=== PATIENT | male | born 1965 | race Caucasian/White ===

== ENCOUNTER 2017-07-08 14:36 | Observation (INO) | payer MEDICAID ==
[2017-07-08 15:32] LABS: BASO # 0.1 K/uL (0.0-0.2); BASO % 0.9 % (0.0-2.0); EOS # 0.5 K/uL (0.0-0.7); EOS % 4.4 % (0.0-4.0); LYMPH # 3.5 K/uL (1.0-4.3); LYMPH % 31.5 % (20.0-40.0); MEAN CELL VOLUME 88.3 fL (80.0-94.0); MEAN CORPUSCULAR HEMOGLOBIN 29.5 pg (27.0-31.0); MEAN CORPUSCULAR HGB CONC 33.4 g/dL (33.0-37.0); MEAN PLATELET VOLUME 6.8 fL (7.2-11.7); MONO # 0.7 K/uL (0.0-0.8); MONO % 6.2 % (0.0-10.0); NRBC % 0.1 % (0.0-2.0); RED CELL DISTRIBUTION WIDTH 13.3 % (11.5-14.5); WHITE BLOOD COUNT 11.2 K/uL (4.8-10.8)
[2017-07-08 15:41] LABS: INR 1.1
[2017-07-08 15:52] LABS: CHLORIDE 102 mmol/L (98-107); POTASSIUM 4.7 mmol/L (3.6-5.2); SODIUM 138 mmol/L (132-148)
[2017-07-08 15:54] LABS: GFR AFRICAN-AMERICAN > 60
[2017-07-08 15:55] LABS: ALB/GLOB RATIO 1.3 (1.0-2.1); ALKALINE PHOSPHATASE 88 U/L (38-126); ALT/SGPT 83 U/L (21-72); AST/SGOT 35 U/L (17-59); BILIRUBIN,TOTAL 0.2 mg/dL (0.2-1.3); BLOOD UREA NITROGEN 14 mg/dL (9-20); CARBON DIOXIDE 24 mmol/L (22-30); GLUCOSE,RANDOM 253 mg/dL (75-110); TOTAL PROTEIN 6.5 g/dL (6.3-8.3)
[2017-07-08 15:56] LABS: CALCIUM 8.8 mg/dl (8.6-10.4)
--- NOTE | 2017-07-08 15:56 | C.PDOC ---
History Of Present Illness 52 y/o male presents to emergency department with complaint of left sided chest pain since last night. Patient reports that chest pain radiates down his left arm, and is associated with dyspnea on exertion. Patient reports he was seen at PMD's office today, however, PMD sent to the ER for further evaluation. Denies nausea, vomiting, fever, trauma, numbness, or weakness. Time Seen by Provider: 07/08/17 15:03 Chief Complaint (Nursing): Chest Pain History Per: Patient History/Exam Limitations: no limitations Onset/Duration Of Symptoms: Days Current Symptoms Are (Timing): Still Present Quality: "Pain" Exacerbating Factors: Exertion Recent travel outside of the [place]: No Past Medical History Reviewed: Historical Data, Nursing Documentation, Vital Signs Vital Signs: Last Vital Signs Temp 98.2 F 07/08/17 18:32 Pulse 70 07/08/17 18:32 Resp 16 07/08/17 18:32 BP 132/71 07/08/17 18:32 Pulse Ox 96 07/08/17 19:31 - Medical History PMH: HTN, Hypercholesterolemia Family History: States: Unknown Family Hx - Social History Hx Alcohol Use: No Hx Substance Use: No - Immunization History Hx Tetanus Toxoid Vaccination: Yes Hx Influenza Vaccination: Yes Hx Pneumococcal Vaccination: No Review Of Systems Except As Marked, All Systems Reviewed And Found Negative. Constitutional: Negative for: Fever, Chills Cardiovascular: Positive for: Chest Pain. Negative for: Palpitations Respiratory: Positive for: SOB with Excertion. Negative for: Cough, Sputum, Wheezing Gastrointestinal: Negative for: Nausea, Vomiting, Abdominal Pain Musculoskeletal: Positive for: Arm Pain (L) Skin: Negative for: Rash Neurological: Negative for: Headache, Dizziness Physical Exam - Physical Exam Appears: Non-toxic, No Acute Distress Skin: Normal Color, Warm, Dry Head: Atraumatic, Normacephalic Eye(s): bilateral: Normal Inspection, PERRL, EOMI Ear(s): Bilateral: Normal Nose: Normal Oral Mucosa: Moist Neck: Normal ROM, Supple Chest: Symmetrical Cardiovascular: Rhythm Regular Respiratory: Normal Breath Sounds, No Rales, No Rhonchi, No Wheezing Gastrointestinal/Abdominal: Soft, No Tenderness, No Guarding, No Rebound Back: Normal Inspection Extremity: Normal ROM, No Pedal Edema, Capillary Refill (< 2 sec.), No Swelling Neurological/Psych: Oriented x3, Normal Speech, Normal Cognition ED Course And Treatment - Laboratory Results Result Diagrams: 07/08/17 15:29 07/08/17 15:29 ECG: Interpreted By Me ECG Rhythm: Sinus Rhythm ECG Interpretation: Normal Rate From EC (bpm) O2 Sat by Pulse Oximetry: 96 (RA) Pulse Ox Interpretation: Normal - Radiology CXR: Viewed By Me, Read By Radiologist CXR Interpretation: Yes: No Acute Disease. No: Infiltrates Progress Note: EKG, CxR, and bloodwork ordered/reviewed. Treated with nitro SL and aspirin 324mg. Medical Decision Making Medical Decision Making: Case discussed with Dr. Domínguez, agrees to admit for chest pain. Disposition - Disposition Disposition: HOSPITALIZED Disposition Time: 17:00 Condition: FAIR - Clinical Impression Clinical Impression: Chest pain - PA / MATTRESS FILLER / Resident Statement MD/DO has reviewed & agrees with the documentation as recorded. - Scribe Statement The provider has reviewed the documentation as recorded by the Scribe Gómez Neal All medical record entries made by the Miibe were at my direction and personally dictated by me. I have reviewed the chart and agree that the record accurately reflects my personal performance of the history, physical exam, medical decision making, and the department course for this patient. I have also personally directed, reviewed, and agree with the discharge instructions and disposition.
--- NOTE | 2017-07-08 15:57 | RAD ---
PROCEDURE: CHEST RADIOGRAPH, 1 VIEW HISTORY: chest pain COMPARISON: None available. FINDINGS: LUNGS: Clear. PLEURA: No pneumothorax or pleural fluid seen. CARDIOVASCULAR: Normal. OSSEOUS STRUCTURES: No significant abnormalities. VISUALIZED UPPER ABDOMEN: Normal. OTHER FINDINGS: None. IMPRESSION: No active disease.
[2017-07-08] MEDS ORDERED: Sodium Chloride 0.9% 1,000 ML IV ONE (16:39)
[2017-07-08] MEDS ORDERED: (Lantus) Insulin Glargine, Recombinant SC SCH (22:00)
[2017-07-08] MEDS: Enoxaparin 40 mg Syringe SC SCH (22:31)
[2017-07-08] MEDS: (Novolog) Insulin Aspart, Recombinant 100 u/ml 10 ml vial SC SCH (22:32)
--- NOTE | 2017-07-09 09:10 | CP.PCM.PN ---
Subjective - Date & Time of Evaluation Date of Evaluation: 07/09/17 Time of Evaluation: 09:45 - Subjective Subjective: Dr. Domínguez note: Patient seen and examined in room. He is a 52 year old male with a history of IDDM and smoking is here with 2 days of right sided chest pain that radiates to his right arm. He says the pain was constant for two days whether he was active or not. He says the pain has diminished since admission but he says the he has an unusual feeling in his arm. Objective - Vital Signs/Intake and Output Vital Signs (last 24 hours): Temp Pulse Resp BP Pulse Ox 97.7 F 69 97 H 147/81 98 07/09/17 08:48 07/09/17 08:48 07/09/17 08:48 07/09/17 08:48 07/09/17 04:15 Intake and Output: 07/09/17 07/09/17 06:59 18:59 Intake Total 120 Balance 120 - Medications Medications: Current Medications Aspirin (Ecotrin) 81 mg PO DAILY [facility] Carvedilol (Coreg) 12.5 mg PO BID [facility] Clopidogrel Bisulfate (Plavix) 75 mg PO DAILY [facility] Last Admin: 07/08/17 22:31 Dose: 75 mg Enalapril Maleate (Vasotec) 40 mg PO DAILY [facility] Enoxaparin Sodium (Lovenox) 40 mg SC DAILY [facility] Last Admin: 07/08/17 22:31 Dose: 40 mg Insulin Aspart (Novolog) 0 unit SC ACHS [facility] PRN Reason: Protocol Last Admin: 07/08/17 22:32 Dose: Not Given Insulin Aspart (Novolog) 20 unit SC TIDPC [facility] Insulin Glargine (Lantus) 70 unit SC [facility] Last Admin: 07/08/17 22:30 Dose: 70 u Metformin HCl (Glucophage) 1,000 mg PO BID [facility] Rosuvastatin Calcium (Crestor) 5 mg PO HS [facility] Last Admin: 07/08/17 22:27 Dose: 5 mg - Labs Labs: 07/08/17 15:29 07/08/17 15:29 PT 12.3 SECONDS (9.7-12.2) H 07/08/17 15:29 INR 1.1 07/08/17 15:29 APTT 30 SECONDS (21-34) 10/02/17 15:29 - Constitutional Appears: Non-toxic, No Acute Distress - Eye Exam Eye Exam: Normal appearance - Respiratory Exam Respiratory Exam: Clear to Ausculation Bilateral. absent: Rales, Rhonchi, Wheezes - Cardiovascular Exam Cardiovascular Exam: REGULAR RHYTHM, RRR, +S1, +S2. absent: Gallop, Rubs - GI/Abdominal Exam GI & Abdominal Exam: Soft, Normal Bowel Sounds. absent: Tenderness - Extremities Exam Extremities Exam: Normal Inspection. absent: Pedal Edema - Psychiatric Exam Psychiatric exam: Normal Affect, Normal Mood - Skin Skin Exam: Normal Color Assessment and Plan (1) Chest pain Assessment & Plan: Patient seen by technology administrator, Dr. Young who suggested outpatient stress test. Have discharged patient home to continue all his home medications. Status: Acute (2) HTN (hypertension) Assessment & Plan: continue his home medication on discharge. Status: Acute (3) Diabetes mellitus Assessment & Plan: continue with home insulin and continue to check his blood sugar at home. Status: Acute (4) Prophylactic measure Assessment & Plan: Patient discharged home today, he will follow up with PMD and Dr. Young. Status: Acute
[2017-07-09 09:18] VITALS: RESP 20
[2017-07-09] MEDS: (Novolog) Insulin Aspart, Recombinant 100 u/ml 10 ml vial SC SCH ×4 (09:19→13:26)
[2017-07-09] MEDS: Enoxaparin 40 mg Syringe SC SCH (09:21)
--- NOTE | 2017-07-09 15:38 | CP.PCM.CON ---
History of Present Illness - History of Present Illness History of Present Illness: I was asked to see patient by Dr. Domínguez. Patient is a 52 year old male with PMH HTN, DM, hypercholesterolemia, who presents with chest pain. The patient describes intermitten chest pain which is left sided and occurs at rest. He states symptoms were progressive. He had associated dyspnea. His primary docotr encouraged him to go to the ER. The patient feels better today. He is s /p echocardiogram Review of Systems - Constitutional Constitutional: absent: As Per HPI, Anorexia, Chills, Daytime Sleepiness, Excessive Sweating, Fatigue, Fever, Frequent Falls, Headache, Increased Appetite , Lethargy, Malaise, Night Sweats, Snoring, Sleep Apnea, Weight Gain, Weight Loss, Weakness, Other - EENT Eyes: absent: As Per HPI, Blind Spots, Blurred Vision, Change in Vision, Decreased Night Vision, Diplopia, Discharge, Dry Eye, Exophthalmos, Floaters, Irritation, Itchy Eyes, Loss of Peripheral Vision, Pain, Photophobia, Requires Corrective Lenses, Sees Flashes, Spots in Vision, Tunnel Vision, Other Visual Disturbances, Loss of Vision, Other Ears: absent: As Per HPI, Decreased Hearing, Ear Discharge, Ear Pain, Tinnitus, Abnormal Hearing, Disequilibrium, Dizziness, Other Nose/Mouth/Throat: absent: As Per HPI, Epistaxis, Nasal Congestion, Nasal Discharge, Nasal Obstruction, Nasal Trauma, Nose Pain, Post Nasal Drip, Sinus Pain, Sinus Pressure, Bleeding Gums, Change in Voice, Dental Pain, Dry Mouth, Dysphagia, Halitosis, Hoarsness, Lip Swelling, Mouth Lesions, Mouth Pain, Odynophagia, Sore Throat, Throat Swelling, Tongue Swelling, Facial Pain, Neck Pain, Neck Mass, Other - Cardiovascular Cardiovascular: Chest Pain at Rest - Respiratory Respiratory: absent: As Per HPI, Cough, Dyspnea, Hemoptysis, Dyspnea on Exertion , Wheezing, Snoring, Stridor, Pain on Inspiration, Chest Congestion, Excessive Mucous Production, Change in Mucous Color, Pain with Coughing, Other - Gastrointestinal Gastrointestinal: absent: As Per HPI, Abdominal Pain, Belching, Bloating, Change in Bowel Habits, Change in Stool Character, Coffee Ground Emesis, Constipation, Cramping, Diarrhea, Dyspepsia, Dysphagia, Early Satiety, Excessive Flatus, Fecal Incontinence, Heartburn, Hematemesis, Hematochezia, Loose Stools, Melena, Nausea, Odynophagia, Temesmus, Vomiting, Other - Genitourinary Genitourinary: absent: As Per HPI, Change in Urinary Stream, Difficulty Urinating, Dysuria, Flank Pain, Hematuria, Pyuria, Nocturia, Urinary Incontinence, Urinary Frequency, Urinary Hesitance, Urinary Urgency, Voiding Freq/Small Amts, Freq UTI, Hx Renal/Bladder Calculi, Hx /Renal Surgery, Bladder Distension, Other - Musculoskeletal Musculoskeletal: absent: As Per HPI, Abnormal Gait, Arthralgias, Atrophy, Back Pain, Deformity, Joint Swelling, Limited Range of Motion, Loss of Height, Muscle Cramps, Muscle Weakness, Myalgias, Neck Pain, Numbness, Radiating Pain into Limb, Stiffness, Tingling, Other - Integumentary Integumentary: absent: As Per HPI, Acne, Alopecia, Bleeding Lesions, Change in Hair, Change in Nails, Change in Pigmentation, Changing Lesions, Dry Skin, Erythema, Furuncle, Hirsutism, Lesions, New Lesions, Non-Healing Lesions, Photosensitivity, Pruritus, Rash, Skin Pain, Skin Ulcer, Sores, Striae, Swelling , Unusual Bruising, Wounds, Jaundice, Other - Neurological Neurological: absent: As Per HPI, Abnormal Gait, Abnormal Hearing, Abnormal Movements, Abnormal Speech, Behavioral Changes, Burning Sensations, Confusion, Convulsions, Disequilibrium, Dizziness, Numbness, Focal Weakness, Frequent Falls , Headaches, Lack of Coordination, Loss of Vision, Memory Loss, Paresthesias, Radicular Pain, Restless Legs, Sensory Deficit, Syncope, Tingling, Tremor, Vertigo, Weakness, Other Visual Disturbances, Other - Psychiatric Psychiatric: absent: As Per HPI, Abnormal Sleep Pattern, Anhedonia, Anxiety, Auditory Hallucinations, Behavioral Changes, Change in Appetite, Change in Libido, Confusion, Depression, Difficulty Concentrating, Hallucinations, Homicidal Ideation, Hopelessness, Irritability, Memory Loss, Mood Swings, Panic Attacks, Paranoia, Suicidal Ideation, Visual Hallucinations, Tactile Hallucinations, Other - Endocrine Endocrine: absent: As Per HPI, Change in Body Appearance, Change in Libido, Cold Intolorance, Deepening of Voice, Excessive Sweating, Fatigue, Flushing, Heat Intolorance, Increase in Ring/Shoe/Hat Size, Palpitations, Polydipsia, Polyphagia, Polyuria, Other - Hematologic/Lymphatic Hematologic: absent: As Per HPI, Easy Bleeding, Easy Bruising, Lymphadenopathy, Other Past Patient History - Past Medical History & Family History Past Medical History?: Yes - Past Social History Smoking Status: Light Smoker < 10 Cigarettes Daily - CARDIAC Hx Hypercholesterolemia: Yes Hx Hypertension: Yes - PULMONARY Hx Respiratory Disorders: No - NEUROLOGICAL Hx Neurological Disorder: No - HEENT Hx Cataracts: Yes (Right eye) - RENAL Hx Chronic Kidney Disease: No - ENDOCRINE/METABOLIC Hx Diabetes Mellitus Type 2: Yes - HEMATOLOGICAL/ONCOLOGICAL Hx Blood Disorders: No - INTEGUMENTARY Hx Dermatological Problems: No - MUSCULOSKELETAL/RHEUMATOLOGICAL Hx Musculoskeletal Disorders: No Hx Falls: No - GASTROINTESTINAL Hx Pancreatitis: Yes - GENITOURINARY/GYNECOLOGICAL Hx Genitourinary Disorders: No - PSYCHIATRIC Hx Psychophysiologic Disorder: No Hx Substance Use: No - SURGICAL HISTORY Hx Surgeries: Yes Other/Comment: B/L FOOT SX - ANESTHESIA Hx Anesthesia: Yes Hx Anesthesia Reactions: No Meds Allergies/Adverse Reactions: Allergies Allergy/AdvReac Type Severity Reaction Status Date / Time No Known Allergies Allergy Verified 07/08/17 14:49 - Medications Medications: Current Medications Aspirin (Ecotrin) 81 mg PO DAILY [facility] Last Admin: 07/09/17 09:22 Dose: 81 mg Carvedilol (Coreg) 12.5 mg PO BID [facility] Last Admin: 07/09/17 09:23 Dose: 12.5 mg Clopidogrel Bisulfate (Plavix) 75 mg PO DAILY [facility] Last Admin: 07/09/17 09:23 Dose: 75 mg Enalapril Maleate (Vasotec) 40 mg PO DAILY [facility] Last Admin: 07/09/17 09:23 Dose: 40 mg Enoxaparin Sodium (Lovenox) 40 mg SC DAILY [facility] Last Admin: 07/09/17 09:21 Dose: 40 mg Insulin Aspart (Novolog) 0 unit SC ACHS [facility] PRN Reason: Protocol Last Admin: 07/09/17 12:30 Dose: Not Given Insulin Aspart (Novolog) 20 unit SC TIDPC [facility] Last Admin: 07/09/17 13:26 Dose: 20 unit Insulin Glargine (Lantus) 70 unit SC HS [facility] Last Admin: 07/08/17 22:30 Dose: 70 u Metformin HCl (Glucophage) 1,000 mg PO BID [facility] Last Admin: 07/09/17 09:23 Dose: 1,000 mg Rosuvastatin Calcium (Crestor) 5 mg PO HS [facility] Last Admin: 07/08/17 22:27 Dose: 5 mg Physical Exam - Constitutional Appears: Non-toxic - Head Exam Head Exam: NORMAL INSPECTION - Eye Exam Eye Exam: Normal appearance - ENT Exam ENT Exam: Mucous Membranes Moist - Neck Exam Neck exam: Positive for: Full Rom - Respiratory Exam Respiratory Exam: NORMAL BREATHING PATTERN - Cardiovascular Exam Cardiovascular Exam: REGULAR RHYTHM - GI/Abdominal Exam GI & Abdominal Exam: Normal Bowel Sounds - Rectal Exam Rectal Exam: Deferred - Extremities Exam Extremities exam: Positive for: pedal pulses present. Negative for: pedal edema - Back Exam Back exam: NORMAL INSPECTION - Neurological Exam Neurological exam: Alert - Psychiatric Exam Psychiatric exam: Normal Mood - Skin Skin Exam: Dry Results - Vital Signs Recent Vital Signs: Last Vital Signs Temp 97.7 F 07/09/17 08:48 Pulse 71 07/09/17 09:17 Resp 20 07/09/17 09:17 BP 147/93 H 07/09/17 09:23 Pulse Ox 97 07/09/17 09:17 - Labs Result Diagrams: 07/08/17 15:29 07/08/17 15:29 Labs: Laboratory Results - last 24 hr 07/08/17 07/08/17 07/08/17 15:29 15:29 15:29 WBC 11.2 H RBC 4.42 Hgb 13.0 Hct 39.0 MCV 88.3 MCH 29.5 MCHC 33.4 RDW 13.3 Plt Count 387 MPV 6.8 L Neut % (Auto) 57.0 Lymph % (Auto) 31.5 [place] % (Auto) 6.2 Eos % (Auto) 4.4 H Baso % (Auto) 0.9 Neut # 6.4 Lymph # 3.5 [place] # 0.7 Eos # 0.5 Baso # 0.1 PT 12.3 H INR 1.1 APTT 30 Sodium 138 Potassium 4.7 Chloride 102 Carbon Dioxide 24 Anion Gap 17 BUN 14 Creatinine 0.7 L Est GFR ( Amer) > 60 Est GFR (Non-Af Amer) > 60 POC Glucose (mg/dL) Random Glucose 253 H Calcium 8.8 Total Bilirubin 0.2 AST 35 ALT 83 H Alkaline Phosphatase 88 Total Creatine Kinase CK-MB (Mass) Troponin I < 0.0120 Troponin I, Quant NT-Pro-B Natriuret Pep 14.0 Total Protein 6.5 Albumin 3.7 Globulin 2.9 Albumin/Globulin Ratio 1.3 07/08/17 07/09/17 07/09/17 21:59 00:59 07:01 WBC RBC Hgb Hct MCV MCH MCHC RDW Plt Count MPV Neut % (Auto) Lymph % (Auto) [place] % (Auto) Eos % (Auto) Baso % (Auto) Neut # Lymph # [place] # Eos # Baso # PT INR APTT Sodium Potassium Chloride Carbon Dioxide Anion Gap BUN Creatinine Est GFR ( Amer) Est GFR (Non-Af Amer) POC Glucose (mg/dL) 250 H 220 H Random Glucose Calcium Total Bilirubin AST ALT Alkaline Phosphatase Total Creatine Kinase 178 H CK-MB (Mass) 1.16 Troponin I Troponin I, Quant < 0.0120 NT-Pro-B Natriuret Pep Total Protein Albumin Globulin Albumin/Globulin Ratio 07/09/17 07/09/17 08:51 12:13 WBC RBC Hgb Hct MCV MCH MCHC RDW Plt Count MPV Neut % (Auto) Lymph % (Auto) [place] % (Auto) Eos % (Auto) Baso % (Auto) Neut # Lymph # [place] # Eos # Baso # PT INR APTT Sodium Potassium Chloride Carbon Dioxide Anion Gap BUN Creatinine Est GFR ( Amer) Est GFR (Non-Af Amer) POC Glucose (mg/dL) 135 H Random Glucose Calcium Total Bilirubin AST ALT Alkaline Phosphatase Total Creatine Kinase 167 CK-MB (Mass) 1.09 Troponin I Troponin I, Quant < 0.0120 NT-Pro-B Natriuret Pep Total Protein Albumin Globulin Albumin/Globulin Ratio - EKG Data EKG Interpreted by: Myself EKG shows normal: Sinus rhythm Assessment & Plan - Assessment and Plan (Free Text) Assessment: chest pain. Patient ruled out for myocardial infarction. The echocardiogram reveals normal left ventricular function and no wall motion abnormalities. The patient is stable for discharge. I will schedule outpatient stress test. Diabetes mellitus. Risk factor for CAD. will schedule outpatient stress test.
--- NOTE | 2017-07-09 16:53 | CP.PCM.DIS ---
Provider - Provider Date of Admission: 07/08/17 17:32 Attending physician: Minh Domínguez MD Diagnosis - Discharge Diagnosis (1) Chest pain Status: Acute (2) HTN (hypertension) Status: Acute (3) Diabetes mellitus Status: Acute (4) Prophylactic measure Status: Acute Hospital Course - Lab Results Lab Results: Most Recent Lab Values WBC 11.2 K/uL (4.8-10.8) H 07/08/17: RBC 4.42 Mil/uL (4.40-5.90) 07/08/17 15: Hgb 13.0 g/dL (12.0-18.0) 07/08/17: Hct 39.0 % (35.0-51.0) 07/08/17: MCV 88.3 fL (80.0-94.0) 07/08/17: MCH 29.5 pg (27.0-31.0) 07/08/17: MCHC 33.4 g/dL (33.0-37.0) 07/08/17: RDW 13.3 % (11.5-14.5) 07/08/17: Plt Count 387 K/uL (130-400) 07/08/17: MPV 6.8 fL (7.2-11.7) L 07/08/17: Neut % (Auto) 57.0 % (50.0-75.0) 07/08/17: Lymph % (Auto) 31.5 % (20.0-40.0) 07/08/17: [place] % (Auto) 6.2 % (0.0-10.0) 07/08/17: Eos % (Auto) 4.4 % (0.0-4.0) H 07/08/17: Baso % (Auto) 0.9 % (0.0-2.0) 07/08/17: Neut # 6.4 K/uL (1.8-7.0) 07/08/17: Lymph # 3.5 K/uL (1.0-4.3) 07/08/17: [place] # 0.7 K/uL (0.0-0.8) 07/08/17 15: Eos # 0.5 K/uL (0.0-0.7) 07/08/17 15:29 Baso # 0.1 K/uL (0.0-0.2) 07/08/17 15:29 PT 12.3 SECONDS (9.7-12.2) H 07/08/17 15: INR 1.1 07/08/17 15: APTT 30 SECONDS (21-34) 07/08/17 15:29 Sodium 138 mmol/L (132-148) 07/08/17 15:29 Potassium 4.7 mmol/L (3.6-5.2) 07/08/17 15: Chloride 102 mmol/L (98-107) 07/08/17 15: Carbon Dioxide 24 mmol/L (22-30) 07/08/17 15: Anion Gap 17 (10-20) 07/08/17 15: BUN 14 mg/dL (9-20) 07/08/17 15: Creatinine 0.7 MG/DL (0.8-1.5) L 07/08/17 15:29 Est GFR ( Amer) > 60 07/08/17 15:29 Est GFR (Non-Af Amer) > 60 07/08/17 15:29 POC Glucose (mg/dL) 135 mg/dL (65-110) H 07/09/17 12:13 Random Glucose 253 mg/dL (75-110) H 07/08/17 15: Calcium 8.8 mg/dl (8.6-10.4) 07/08/17 15:29 Total Bilirubin 0.2 mg/dL (0.2-1.3) 07/08/17 15:29 AST 35 U/L (17-59) 07/08/17 15:29 ALT 83 U/L (21-72) H 07/08/17 15:29 Alkaline Phosphatase 88 U/L (38-126) 07/08/17 15:29 Total Creatine Kinase 167 U/L (55-170) 07/09/17 08:51 CK-MB (Mass) 1.09 ng/mL (0.0-3.38) 07/09/17 08:51 Troponin I < 0.0120 ng/mL (0.00-0.120) 07/08/17 15:29 Troponin I, Quant < 0.0120 ng/mL (0.00-0.120) 07/09/17 08:51 NT-Pro-B Natriuret Pep 14.0 pg/mL (0-900) 07/08/17 15:29 Total Protein 6.5 g/dL (6.3-8.3) 07/08/17 15: Albumin 3.7 g/dL (3.5-5.0) 07/08/17 15: Globulin 2.9 gm/dL (2.2-3.9) 07/08/17 15:29 Albumin/Globulin Ratio 1.3 (1.0-2.1) 07/08/17 15:29 Discharge Exam - Head Exam Head Exam: NORMAL INSPECTION Discharge Plan - Follow Up Plan Condition: FAIR Disposition: HOME/ ROUTINE Instructions: Chest Pain (DC), Heart Healthy Diet (DC), Diabetic Foot Care (DC) , Basic Carbohydrate Counting (DC), Meal Planning with the Plate Method (DC), Meal Planning with Diabetes Exchanges (DC) Additional Instructions: Patient to be discharged home per Dr. Young and Dr. Domínguez. Patient will continue all his home medications. Patient will need to follow up with Dr. Young for outpatient stress test. Patient will return to ED if symptoms return or worsen. Referrals: Minh Domínguez MD [Staff Provider] - Diaz Young MD [Staff Provider] -
[2017-07-09 18:04] VITALS: BP 130/77; PULSE 67; TEMP 98; O2SAT 98
--- NOTE | 2017-07-10 06:43 | HP ---
HISTORY OF PRESENT ILLNESS: The patient is a 52-year-old male admitted to the hospital with complaint weakness, chest pain, recurrent. Patient has diabetes. PHYSICAL EXAMINATION: GENERAL: The patient is awake, alert, oriented. VITAL SIGNS: Temperature 98, pulse 90. HEENT: Within normal limits. NECK: Supple. CHEST: Symmetrical. HEART: Regular. ABDOMEN: Soft. EXTREMITIES: No edema. IMPRESSION: Unstable angina. The patient bedrest, supportive care. Minh Domínguez MD
--- NOTE | 2017-07-10 12:01 | CARD ---
APPROVED REPORT EKG Measurement Heart [id number] <Conclusion> Sinus rhythm with occasional premature ventricular complexes Otherwise normal ECG
--- NOTE | 2017-07-10 12:25 | CARD ---
APPROVED REPORT EXAM: Two-dimensional and M-mode echocardiogram with Doppler and color Doppler. Other Information Quality : GoodRhythm : NSR INDICATION Dyspnea Chest Pain 2D DIMENSIONS IVSd1.4 (0.7-1.1cm)LVDd4.5 (3.9-5.9cm) PWd1.2 (0.7-1.1cm)LVDs3.1 (2.5-4.0cm) FS (%) 31.2 %LVEF (%)59.2 (>50%) M-Mode DIMENSIONS Left Atrium (MM)4.51 (2.5-4.0cm)Aortic Root3.66 (2.2-3.7cm) Aortic Cusp Exc.2.21 (1.5-2.0cm) Mitral Valve MV E Cwniodsa27.3cm/sMV A Wtfjiyri33.9cm/sE/A ratio0.8 TDI E/Lateral E'0.0E/Medial E'0.0 Tricuspid Valve TR Peak [id number]/sTR Peak [id number] <Conclusion> tds. poor window. la is moderately dilated. normal size lv,ra & rv. mild lvh with normal lv wall motion & systolic funciton with lvef of 60-65%. lv diastolic dysfunciton grade one. probably normal aortic,mitral,tv. trace mr,tr. no pericadial effusion. normal size aortic root.
== END 2017-07-09 17:25 | disposition home or self-care (01) ==
LOC: C.ER 14:36 → C.9E 17:32 → C.6T 18:28
PROVIDERS: ADMIT Internal Medicine Pulmonary Disease; ATTEND Internal Medicine Pulmonary Disease
DX: R07.89 Other chest pain (principal); I10 Essential (primary) hypertension; E78.00 Pure hypercholesterolemia, unspecified; E11.9 Type 2 diabetes mellitus without complications; Z79.4 Long term (current) use of insulin; Z87.891 Personal history of nicotine dependence
CPT/HCPCS: 36415; 71010; 80053; 82948; 83880; 84484; 85025; 85610; 85730; 93005; 93306; 96360; 99285; G0378; J1650; J7040

== ENCOUNTER 2017-10-28 19:04 | Inpatient (IN) | payer MEDICAID ==
[2017-10-28] MEDS ORDERED: Sodium Chloride 0.9% 1,000 ML IV ONE (22:23)
[2017-10-28] MEDS ORDERED: Piperacillin/Tazobact 3.375 gm 100 ML IV STA (22:24)
[2017-10-28] MEDS ORDERED: Vancomycin 1 GM 1 GM/250 ML BAG IV SCH (22:30)
--- NOTE | 2017-10-28 22:30 | C.PDOC ---
History Of Present Illness 52 year old male presents to ED with complaints of a lower extremity problem and has a past medical history of hyperchoelsterolemia, HTN, and diabetes mellitus. Notes foul smell and enlargement to third toe on right foot. PCP: Nicolette Roger [facility] Leonard [facility] great toenail often falls off and is monitored. Time Seen by Provider: 10/28/17 21:53 Chief Complaint (Nursing): Lower Extremity Problem/Injury History Per: Patient History/Exam Limitations: no limitations Onset/Duration Of Symptoms: Worse Since Past Medical History Reviewed: Historical Data, Nursing Documentation, Vital Signs Vital Signs: Last Vital Signs Temp 98.3 F 10/28/17 20:15 Pulse 86 10/28/17 20:15 Resp 20 10/28/17 20:15 BP 160/91 H 10/28/17 20:15 Pulse Ox 97 10/28/17 23:07 - Medical History PMH: HTN, Hypercholesterolemia, Pancreatitis Denies: Chronic Kidney Disease Family History: States: Unknown Family Hx - Social History Hx Alcohol Use: No Hx Substance Use: No - Immunization History Hx Tetanus Toxoid Vaccination: Yes Hx Influenza Vaccination: Yes Hx Pneumococcal Vaccination: No Review Of Systems Except As Marked, All Systems Reviewed And Found Negative. Musculoskeletal: Positive for: Foot Pain ((+) right third toe is enlarged and foul smelling. Notes ulcer) Physical Exam - Physical Exam Appears: No Acute Distress Skin: Normal Color, Warm, Dry Extremity: Normal ROM, No Swelling, Other (Ulcerated right third toe. No edema or cellulitis to the dorsum of the foot.) Neurological/Psych: Normal Motor, Normal Sensation ED Course And Treatment - Laboratory Results Result Diagrams: 10/28/17 22:38 10/28/17 22:38 Lab Interpretation: Abnormal ECG: Interpreted By Me ECG Rhythm: Sinus Tachycardia ECG Interpretation: Abnormal Rate From EC O2 Sat by Pulse Oximetry: 97 Pulse Ox Interpretation: Normal - Radiology CXR: Interpreted by Me CXR Interpretation: Yes: No Acute Disease - Other Rad R 3rd toe X-Ray: Interpreted by Me (normal R 3rd toe, no gas) Progress Note: vanco, zosyn, IVF. no pain meds as toe anasthetic. Reevaluation Time: 23:02 Reassessment Condition: Unchanged - Physician Consult Information Outcome Of Conversation: 2300: d/w Dr. Claudio- Medicine Chuck Tender- ok to Adm. 2209 : d/w Podiatry Bola under Dr. Silas Quinn, agree w treatment and will consult. 2304: d/w Medicine Bola, will eval. Medical Decision Making Medical Decision Making: diabetic R 3rd toe infection, prob polymicrobial, widely covered w Vanco/Zosyn, no s/s of necrotizing fasciitis. podiatry to eval. Disposition Doctor Will See Patient In The: Hospital Counseled Patient/Family Regarding: Studies Performed, Diagnosis - Disposition Disposition: HOSPITALIZED Disposition Time: 23:04 Condition: GOOD - Clinical Impression Clinical Impression: Diabetic toe ulcer
[2017-10-28] MEDS ORDERED: Piperacill/Tazo 3.375gm in Dex 3.375 GM/50 ML BAG IVPB STA (22:38)
[2017-10-28 22:43] LABS: BASO # 0.1 K/uL (0.0-0.2); BASO % 0.9 % (0.0-2.0); EOS # 0.4 K/uL (0.0-0.7); EOS % 3.5 % (0.0-4.0); HEMOGLOBIN 12.5 g/dL (12.0-18.0); LYMPH # 3.8 K/uL (1.0-4.3); LYMPH % 30.4 % (20.0-40.0); MEAN CELL VOLUME 89.1 fL (80.0-94.0); MEAN CORPUSCULAR HEMOGLOBIN 30.3 pg (27.0-31.0); MEAN CORPUSCULAR HGB CONC 34.1 g/dL (33.0-37.0); MONO # 1.2 K/uL (0.0-0.8); MONO % 9.9 % (0.0-10.0); NEUT # 6.9 K/uL (1.8-7.0); NEUT % 55.3 % (50.0-75.0); RBC 4.1 Mil/uL (4.40-5.90); RED CELL DISTRIBUTION WIDTH 13.6 % (11.5-14.5); WHITE BLOOD COUNT 12.5 K/uL (4.8-10.8)
[2017-10-28 22:55] LABS: ALB/GLOB RATIO 1.3 (1.0-2.1); ALBUMIN 4.2 g/dL (3.5-5.0); ALT/SGPT 71 U/L (21-72); AST/SGOT 50 U/L (17-59); BLOOD UREA NITROGEN 18 mg/dL (9-20); CALCIUM 9.3 mg/dl (8.6-10.4); GFR AFRICAN-AMERICAN > 60; GFR NON-AFRICAN AMERICAN > 60
--- NOTE | 2017-10-28 23:41 | CP.PCM.HP ---
History of Present Illness - History of Present Illness History of Present Illness: Medicine Note for Dr. Strange Service CC: right toe pain HPI: 52M with PMHx of COPD, HTN, Type 2 DM, HLD presents to the ED with right toe pain. Patient reports he noticed the 3rd toe of his right foot was black and oozing with drainage. 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 He follows up with podiatry every 3-4 months, and this was not seen on prior visit. Patient describes the pain as heavy and sharp and rates it 8/10 and reports radiation of the pain to the caudal surface of his right knee. He reports taking Motrin at home for the pain, with little relief. He is able to bear weight on the foot, but with some level of discomfort. Denied fever, chills, headache, chest pain, SOB, abdominal pain, n/v/d/c, or urinary symptoms. PMH: COPD, HTN, Type 2 DM, HLD PSHx: Right foot fracture (2012), Left Foot Fracture (2013), Tonsillectomy Meds: Metformin 1000 mg PO BID, Lantus 60-70 units QHS, Humalog 20 units TID, Simvastatin, Enalapril, Carvedilol 25 mg PO BID Allergies: NKDA Social Hx: Reports smoking 5 cigarettes a day for the past year, reports quitting smoking from 2004 to 2015. Denies alcohol and illegal drug use. Patient lives with is mother in [place] and works in construction. FMHx: Mother - Stroke, renal failure, heart failure, breast cancer, currently 80 and alive. Father - stroke, renal failure, heart failure, . PMD: Dr. Roger Endo: Dr Maurice Dictaphone Mechanic: Dr. Taylor - Patient reports regular follow up every 3 months. Cardio: Dr. Goldberg Present on Admission - Present on Admission Any Indicators Present on Admission: No Past Patient History - Past Medical History & Family History Past Medical History?: Yes - Past Social History Smoking Status: Light Smoker < 10 Cigarettes Daily - CARDIAC Hx Hypercholesterolemia: Yes Hx Hypertension: Yes - PULMONARY Hx Respiratory Disorders: No - NEUROLOGICAL Hx Neurological Disorder: No - HEENT Hx Cataracts: Yes (Right eye) - RENAL Hx Chronic Kidney Disease: No - ENDOCRINE/METABOLIC Hx Diabetes Mellitus Type 1: Yes - HEMATOLOGICAL/ONCOLOGICAL Hx Blood Disorders: No - INTEGUMENTARY Hx Dermatological Problems: No - MUSCULOSKELETAL/RHEUMATOLOGICAL Hx Musculoskeletal Disorders: No Hx Falls: No - GASTROINTESTINAL Hx Pancreatitis: Yes - GENITOURINARY/GYNECOLOGICAL Hx Genitourinary Disorders: No - PSYCHIATRIC Hx Substance Use: No - SURGICAL HISTORY Hx Surgeries: Yes Other/Comment: B/L FOOT SX - ANESTHESIA Hx Anesthesia: Yes Hx Anesthesia Reactions: No Meds Allergies/Adverse Reactions: Allergies Allergy/AdvReac Type Severity Reaction Status Date / Time No Known Allergies Allergy Verified 07/08/17 14:49 Physical Exam - Constitutional Appears: No Acute Distress - Head Exam Head Exam: NORMAL INSPECTION, NORMOCEPHALIC - Eye Exam Eye Exam: EOMI, Normal appearance, PERRL Pupil Exam: NORMAL ACCOMODATION - ENT Exam ENT Exam: Mucous Membranes Moist - Respiratory Exam Respiratory Exam: Clear to Auscultation Bilateral, NORMAL BREATHING PATTERN. absent: Decreased Breath Sounds - Cardiovascular Exam Cardiovascular Exam: REGULAR RHYTHM, RRR - GI/Abdominal Exam GI & Abdominal Exam: Normal Bowel Sounds, Soft. absent: Distended, Tenderness - Extremities Exam Extremities exam: Positive for: normal inspection, pedal pulses present. Negative for: pedal edema, tenderness - Expanded Lower Extremities Exam Right Hip exam: normal inspection Upper Leg exam: normal inspection Knee exam: normal inspection Lower Leg Exam: normal inspection Ankle exam: NORMAL INSPECTION Foot/Toe exam: erythema, swelling - Back Exam Back exam: NORMAL INSPECTION - Neurological Exam Neurological exam: Alert, CN II-XII Intact, Oriented x3 - Psychiatric Exam Psychiatric exam: Normal Affect, Normal Mood - Skin Skin Exam: Dry, Intact, Normal Color, Warm Results - Vital Signs Recent Vital Signs: Last Vital Signs Temp 98.3 F 10/28/17 20:15 Pulse 86 10/28/17 20:15 Resp 20 10/28/17 20:15 BP 160/91 H 10/28/17 20:15 Pulse Ox 97 10/28/17 23:07 - Labs Result Diagrams: 10/28/17 22:38 10/28/17 22:38 Labs: Laboratory Results - last 24 hr 10/28/17 10/28/17 10/28/17 22:38 22:38 22:38 WBC 12.5 H RBC 4.10 L Hgb 12.5 Hct 36.6 MCV 89.1 MCH 30.3 MCHC 34.1 RDW 13.6 Plt Count 357 MPV 7.0 L Neut % (Auto) 55.3 Lymph % (Auto) 30.4 [place] % (Auto) 9.9 Eos % (Auto) 3.5 Baso % (Auto) 0.9 Neut # 6.9 Lymph # 3.8 [place] # 1.2 H Eos # 0.4 Baso # 0.1 Sodium 134 Potassium 4.1 Chloride 99 Carbon Dioxide 27 Anion Gap 12 BUN 18 Creatinine 0.9 Est GFR ( Amer) > 60 Est GFR (Non-Af Amer) > 60 Random Glucose 157 H Hemoglobin A1c 10.1 H Calcium 9.3 Total Bilirubin 0.6 AST 50 ALT 71 Alkaline Phosphatase 84 Total Protein 7.5 Albumin 4.2 Globulin 3.3 Albumin/Globulin Ratio 1.3 Serum Ketones Negative Assessment & Plan - Assessment and Plan (Free Text) Assessment: 52M with PMHx of COPD, HTN, Type 2 DM, HLD presents to the ED with right toe pain found to have cellulitis. Plan: Right foot, 3rd toe cellulitis ? Osteomyelitis Podiatry consulted - Dr. Quinn - help appreciated Right Foot Xray: First metatarsal osseous productive change and 3 screws present consistent with prior osteotomy. The 3rd toe with cellulitis as no gross subcutaneous emphysema here, periosteal reaction or cortical destruction. No osteomyelitis. f/u wound cultures f/u MRI to r/o osteomyelitis Meds: Zosyn 2.25 gm Q8H, Vancomycin 1 gm IV daily, f/u vanco trough Hx HTN Home med Coreg 25 mg PO BID Home med Enalapril 40 mg PO daily Hx DM Accuchecks Diabetic Diet Regular ISS Hold home Metformin 1000 mg PO BID for now Home med Lantus 70 units HS Home med Humalog 20 units SC ACTID not on formulary. Switched to Insulin Aspart 20 units ACTID HgbA1c 10.1 Hx HLD Crestor 10mg PO QHS Hx COPD CXR: Mild venous congestion. Prophylactic Measures GI PPX: Protonix 40mg PO daily DVT PPX: SCDs, Heparin Q12 Florastor 250 mg PO BID DW Dr. Claudio, Cat Nobles DO, PGY-1
--- NOTE | 2017-10-29 00:26 | CP.PCM.CON ---
History of Present Illness - History of Present Illness History of Present Illness: Podiatry Consult- Dr. Quinn 52 y.o male with PMH of DM, HTN, High cholesterol consulted in the ED for right 3rd digit ulceration. Patient reports that he noticed the ulceration for the first time today. He reports he feels throbbing pain to his 3rd digit with palpation. He reports the pain 8/10 and reports being localized to the 3rd right digit. Patient reports feeling chills and fever. He reports that he may be coming up the flu. Patient sees a outside criminology teacher Dr. Quoc Valle. Patient denies n/sob/cp/v. PMH:DM, HTN. High cholesterol PSH: tonsiolectomy, right foot surgery MEDS: see meds list ALL: NKDA FH: mother- DM, stroke, kidney failure, breast cancer, HTN, high cholesterol father-DM, HTN, liver cancer SH: 22 year smoker, denies drinking or ilicited drug use Past Patient History - Past Medical History & Family History Past Medical History?: Yes - Past Social History Smoking Status: Light Smoker < 10 Cigarettes Daily - CARDIAC Hx Hypercholesterolemia: Yes Hx Hypertension: Yes - PULMONARY Hx Respiratory Disorders: No - NEUROLOGICAL Hx Neurological Disorder: No - HEENT Hx Cataracts: Yes (Right eye) - RENAL Hx Chronic Kidney Disease: No - ENDOCRINE/METABOLIC Hx Diabetes Mellitus Type 1: Yes - HEMATOLOGICAL/ONCOLOGICAL Hx Blood Disorders: No - INTEGUMENTARY Hx Dermatological Problems: No - MUSCULOSKELETAL/RHEUMATOLOGICAL Hx Musculoskeletal Disorders: No Hx Falls: No - GASTROINTESTINAL Hx Pancreatitis: Yes - GENITOURINARY/GYNECOLOGICAL Hx Genitourinary Disorders: No - PSYCHIATRIC Hx Substance Use: No - SURGICAL HISTORY Hx Surgeries: Yes Other/Comment: B/L FOOT SX - ANESTHESIA Hx Anesthesia: Yes Hx Anesthesia Reactions: No Meds Allergies/Adverse Reactions: Allergies Allergy/AdvReac Type Severity Reaction Status Date / Time No Known Allergies Allergy Verified 07/08/17 14:49 - Medications Medications: Current Medications Acetaminophen (Tylenol 325mg Tab) 650 mg PO Q6 PRN PRN Reason: Pain, Mild (1-3) Heparin Sodium (Porcine) (Heparin) 5,000 units SC Q12 [facility] Vancomycin HCl (Vancomycin 1gm In Normal Saline Addvantage) 1 gm in 250 mls @ 166.667 mls/hr IV STAT [facility] Piperacillin Sod/Tazobactam Sod (Zosyn 2.25 Gm Iv Premix) 2.25 gm in 50 mls @ 100 mls/hr IVPB Q8H [facility] Vancomycin HCl 1 gm/ Sodium (Chloride) 250 mls @ 166.7 mls/hr IVPB Q24H [facility] Insulin Human Regular (Novolin R) 0 unit SC ACHS [facility] PRN Reason: Protocol Ketorolac Tromethamine (Toradol) 10 mg IV Q6 PRN PRN Reason: Pain, moderate (4-7) Pantoprazole Sodium (Protonix Ec Tab) 40 mg PO DAILY [facility] Saccharomyces Boulardii (Florastor) 250 mg PO BID [facility] Physical Exam - Constitutional Appears: Well, Non-toxic, No Acute Distress - Extremities Exam Extremities exam: Negative for: calf tenderness Additional comments: VASC: DP 2/4 and PT 1/4 bilaterally, CFT < 3 seconds, edema noted to the right forefoot ORTHO: pain with palpation to the right 3rd digit and surrounding ulceration, MM is 5/5 in all four compartments, left hallux nail plate loose from nail bed ( patient reports nails often falls and grows back; is being monitored) NEURO: gross sensation intact, protective sensation diminished DERM: Full thickness ulceration, measuring approximately 2 cm x 3 cm x .4 cm noted to the medial distal right 3rd toe, probe to bone, malodorous, no active drainage, wound base mainly fibrotic with slough and necrotic tissue noted, erythema noted consistent with cellutlitis, no streaking, no fluctuate or abscess appreciated - Neurological Exam Neurological exam: Alert, Oriented x3 - Psychiatric Exam Psychiatric exam: Normal Affect, Normal Mood Results - Vital Signs Recent Vital Signs: Last Vital Signs Temp 98.3 F 10/28/17 20:15 Pulse 86 10/28/17 20:15 Resp 20 10/28/17 20:15 BP 160/91 H 10/28/17 20:15 Pulse Ox 97 10/28/17 23:07 - Labs Result Diagrams: 10/28/17 22:38 10/28/17 22:38 Labs: Laboratory Results - last 24 hr 10/28/17 10/28/17 10/28/17 22:38 22:38 22:38 WBC 12.5 H RBC 4.10 L Hgb 12.5 Hct 36.6 MCV 89.1 MCH 30.3 MCHC 34.1 RDW 13.6 Plt Count 357 MPV 7.0 L Neut % (Auto) 55.3 Lymph % (Auto) 30.4 [place] % (Auto) 9.9 Eos % (Auto) 3.5 Baso % (Auto) 0.9 Neut # 6.9 Lymph # 3.8 [place] # 1.2 H Eos # 0.4 Baso # 0.1 Sodium 134 Potassium 4.1 Chloride 99 Carbon Dioxide 27 Anion Gap 12 BUN 18 Creatinine 0.9 Est GFR ( Amer) > 60 Est GFR (Non-Af Amer) > 60 Random Glucose 157 H Hemoglobin A1c 10.1 H Calcium 9.3 Total Bilirubin 0.6 AST 50 ALT 71 Alkaline Phosphatase 84 Total Protein 7.5 Albumin 4.2 Globulin 3.3 Albumin/Globulin Ratio 1.3 Serum Ketones Negative Assessment & Plan - Assessment and Plan (Free Text) Assessment: 52 y.o male with PMH of DM, HTN, High cholesterol consulted in the ED for right 3rd digit ulceration- cellulitic, r/o OM Plan: Patient examined and evaluated Charts, labs, vitals reviewed (afebrile, WBC=12.5) Discussed plan in detail with attending Dr. Quinn X-rays taken-pending final reads Wound culture ordered and taken- pending results Ulceration irrigated with mix saline and betadine at bedside Dressed with betadine W2D C/W empiric abx while on the floors Will order Santyl for dressing changes Ordered surgical shoe. Patient may WBAT in surgical shoe when ambulating Podiatry will continue to follow while on floors Thank you for the consult
[2017-10-29] MEDS: Vancomycin 1 gm/NS 200 ml 1 GM/200 ML BAG IVPB SCH (00:54)
[2017-10-29] MEDS: Saccharomyces Boulardi 250 mg Cap PO SCH ×3 (06:16→18:27)
--- NOTE | 2017-10-29 08:37 | RAD ---
Chest x-ray single frontal view History: Diabetes. Comparison: None available. Findings: Mild venous congestion. Heart size within normal. Degenerative changes in the spine. Impression: Mild venous congestion.
[2017-10-29] MEDS ORDERED: (Novolin R) Insulin Human Regular 100 units/ml vial ONE ×2 (09:00→12:36)
[2017-10-29] MEDS: (Novolin R) Insulin Human Regular 100 units/ml vial SC SCH ×4 (09:07→22:51)
--- NOTE | 2017-10-29 09:25 | RAD ---
PROCEDURE: HISTORY: R toe cellulitis, ? osteomyelitis COMPARISON: None TECHNIQUE: Three-view FINDINGS: First metatarsal osseous productive change and 3 screws present consistent with prior osteotomy. The 3rd toe with cellulitis as no gross subcutaneous emphysema here, periosteal reaction or cortical destruction IMPRESSION: No osteomyelitis
--- NOTE | 2017-10-29 09:32 | CP.PCM.PN ---
<CecegalenRobert Nadege - Last Filed: 10/29/17 19:10> Subjective - Date & Time of Evaluation Date of Evaluation: 10/29/17 Time of Evaluation: 07:10 - Subjective Subjective: Medicine progress note for Dr. Claudio Patient seen and examined. Patient reports no acute pain at the moment. Subjective fevers and chills have resolved. No further complaints. Objective - Vital Signs/Intake and Output Vital Signs (last 24 hours): Temp Pulse Resp BP Pulse Ox 98.2 F 75 20 104/66 98 10/29/17 06:14 10/29/17 06:14 10/29/17 06:14 10/29/17 06:14 10/29/17 06:14 - Medications Medications: Current Medications Acetaminophen (Tylenol 325mg Tab) 650 mg PO Q6 PRN PRN Reason: Pain, Mild (1-3) Carvedilol (Coreg) 25 mg PO BID [facility] Collagenase (Santyl) 1 gm TOP DAILY [facility] Enalapril Maleate (Vasotec) 40 mg PO DAILY [facility] Heparin Sodium (Porcine) (Heparin) 5,000 units SC Q12 [facility] Vancomycin HCl (Vancomycin 1gm In Normal Saline Addvantage) 1 gm in 250 mls @ 166.667 mls/hr IV STAT [facility]INE Piperacillin Sod/Tazobactam Sod (Zosyn 2.25 Gm Iv Premix) 2.25 gm in 50 mls @ 100 mls/hr IVPB Q8H [facility] Vancomycin/Sodium Chloride (Vancomycin 1 Gm/Ns 200 Ml) 1 gm in 200 mls @ 166.7 mls/hr IVPB Q24H [facility] Stop: 11/03/17 01:01 Last Admin: 10/29/17 00:54 Dose: 166.7 mls/hr Insulin Aspart (Novolog) 20 unit SC ACTID [facility] Insulin Glargine (Lantus) 70 unit SC HS [facility] Insulin Human Regular (Novolin R) 0 unit SC ACHS [facility] PRN Reason: Protocol Last Admin: 10/29/17 09:07 Dose: 3 unit Ketorolac Tromethamine (Toradol) 10 mg IV Q6 PRN PRN Reason: Pain, moderate (4-7) Last Admin: 10/29/17 03:30 Dose: 10 mg Pantoprazole Sodium (Protonix Ec Tab) 40 mg PO DAILY [facility] Saccharomyces Boulardii (Florastor) 250 mg PO BID [facility] Last Admin: 10/29/17 06:16 Dose: 250 mg - Labs Labs: 10/28/17 22:38 10/28/17 22:38 - Constitutional Appears: No Acute Distress - Head Exam Head Exam: ATRAUMATIC, NORMOCEPHALIC - Eye Exam Eye Exam: EOMI, Normal appearance - ENT Exam ENT Exam: Mucous Membranes Moist - Respiratory Exam Respiratory Exam: Clear to Ausculation Bilateral, NORMAL BREATHING PATTERN. absent: Rales, Rhonchi, Wheezes - Cardiovascular Exam Cardiovascular Exam: REGULAR RHYTHM, +S1, +S2 - GI/Abdominal Exam GI & Abdominal Exam: Distended, Soft, Normal Bowel Sounds. absent: Guarding, Tenderness - Extremities Exam Extremities Exam: absent: Pedal Edema Additional comments: ulceration of 3rd digit of the right foot. Dressing c/d/i. Surgical boot on. - Neurological Exam Neurological Exam: Alert, Awake, Oriented x3 - Psychiatric Exam Psychiatric exam: Normal Affect, Normal Mood - Skin Skin Exam: Dry, Warm Assessment and Plan - Assessment and Plan (Free Text) Plan: Right foot ulcer with evidence of Osteomyelitis ED has consulted tobacco packing machine operator Dr. Quinn, help appreciated Vancomycin 1 gm IV daily Zosyn 2.25 gm Q8H f/u wound cultures f/u blood cultures MRI on 10/29/17: * Soft tissue ulceration seen at the level of the 3rd distal phalanx. At that level, there is a 4 millimeter low-attenuation foci with some peripheral increased signal measuring 4 millimeters seen at the medial volar aspect at the level of the 3rd digit which may represent a small developing phlegmon collection. Adjacent minimal reactive edema seen within the 3rd distal phalanx with only minimal patchy decreased T1 signal. These findings may represent a mild early acute and or mild developing acute osteomyelitis. * Severe hallux valgus deformity. 6 millimeter foci of decreased T1 signal and increased STIR signal seen at the 1st metatarsal head which may represent developing osteochondral change versus developing osteonecrosis. ID consult, Dr. Cortes, help appreciated History of Hypertension Home med Coreg 25 mg PO BID Home med Enalapril 40 mg PO daily History of Diabetes Hold home Metformin 1000 mg PO BID for now Home med Lantus 70 units HS Home med Humalog 20 units SC ACTID not on formulary. Switched to Insulin Aspart 20 units ACTID HgbA1c 10.1 Regular ISS Accuchecks Prophylactic Measure Florastor 250 mg PO BID Protonix 40 mg PO daily Heparin 5000 units SC Q12 Diabetic Diet Case DW Dr. Shanon Munoz PGY-1 <Joseph Claudio Jr. - Last Filed: 10/31/17 19:29> Objective - Vital Signs/Intake and Output Vital Signs (last 24 hours): Temp Pulse Resp BP Pulse Ox 98.9 F 70 20 125/75 98 10/31/17 15:46 10/31/17 15:46 10/31/17 15:46 10/31/17 17:54 10/31/17 15:46 Intake and Output: 10/31/17 11/01/17 18:59 06:59 Intake Total 1150 Balance 1150 - Medications Medications: Current Medications Acetaminophen (Tylenol 325mg Tab) 650 mg PO Q6 PRN PRN Reason: Pain, Mild (1-3) Last Admin: 10/30/17 15:56 Dose: 650 mg Carvedilol (Coreg) 25 mg PO BID [facility] Last Admin: 10/31/17 17:54 Dose: 25 mg Collagenase (Santyl) 1 gm TOP DAILY [facility] Last Admin: 10/31/17 10:00 Dose: Not Given Dextrose (Dextrose 50% Inj) 0 ml IV STAT PRN; Protocol PRN Reason: Hypoglycemia Protocol Dextrose (Glutose 15) 0 gm PO ONCE PRN; Protocol PRN Reason: Hypoglycemia Protocol Enalapril Maleate (Vasotec) 40 mg PO DAILY [facility] Last Admin: 10/31/17 13:03 Dose: 40 mg Glucagon (Glucagen Diagnostic Kit) 0 mg IM STAT PRN; Protocol PRN Reason: Hypoglycemia Protocol Heparin Sodium (Porcine) (Heparin) 5,000 units SC Q12 [facility] Last Admin: 10/30/17 09:38 Dose: 5,000 units Piperacillin Sod/Tazobactam Sod (Zosyn 2.25 Gm Iv Premix) 2.25 gm in 50 mls @ 100 mls/hr IVPB Q8H [facility] Last Admin: 10/31/17 17:00 Dose: 100 mls/hr Vancomycin/Sodium Chloride (Vancomycin 1 Gm/Ns 200 Ml) 1 gm in 200 mls @ 166.7 mls/hr IVPB Q24H [facility] Stop: 11/03/17 01:01 Last Admin: 10/31/17 01:18 Dose: 166.7 mls/hr Dextrose (Dextrose 5% In Water 1000 Ml) 1,000 mls @ 0 mls/hr IV .Q0M PRN; Protocol; Per Protocol PRN Reason: Hypoglycemia Protocol Insulin Aspart (Novolog) 20 unit SC ACTID [facility] Last Admin: 10/31/17 17:53 Dose: 20 unit Insulin Glargine (Lantus) 70 unit SC HS [facility] Last Admin: 10/30/17 22:22 Dose: 70 units Insulin Human Regular (Novolin R) 0 unit SC ACHS [facility] PRN Reason: Protocol Last Admin: 10/31/17 17:51 Dose: Not Given Ketorolac Tromethamine (Toradol) 10 mg IV Q6 PRN PRN Reason: Pain, moderate (4-7) Last Admin: 10/29/17 03:30 Dose: 10 mg Oxycodone/Acetaminophen (Percocet 5/325 Mg Tab) 1 tab PO Q6H PRN PRN Reason: SEVERE PAIN 8-10 Stop: 11/03/17 09:37 Last Admin: 10/31/17 15:45 Dose: 1 tab Pantoprazole Sodium (Protonix Ec Tab) 40 mg PO DAILY [facility] Last Admin: 10/31/17 12:11 Dose: 40 mg Rosuvastatin Calcium (Crestor) 10 mg PO [facility] Last Admin: 10/30/17 22:21 Dose: 10 mg Saccharomyces Boulardii (Florastor) 250 mg PO BID [facility] Last Admin: 10/31/17 17:52 Dose: 250 mg - Labs Labs: 10/31/17 07:06 10/31/17 07:06 PT 12.1 SECONDS (9.7-12.2) 10/30/17 13:48 INR 1.1 10/30/17 13:48 APTT 31 SECONDS (21-34) 10/30/17 13:48 Attending/Attestation - Attestation I have personally seen and examined this patient.: Yes I have fully participated in the care of the patient.: Yes I have reviewed all pertinent clinical information, including history, physical exam and plan: Yes Notes (Text): 10/31/17 19:29 Agree with resident note and plan of care
--- NOTE | 2017-10-29 10:42 | CP.PCM.PN ---
Objective - Vital Signs/Intake and Output Vital Signs (last 24 hours): Temp Pulse Resp BP Pulse Ox 98.2 F 75 20 104/66 98 10/29/17 06:14 10/29/17 06:14 10/29/17 06:14 10/29/17 06:14 10/29/17 06:14 - Medications Medications: Current Medications Acetaminophen (Tylenol 325mg Tab) 650 mg PO Q6 PRN PRN Reason: Pain, Mild (1-3) Carvedilol (Coreg) 25 mg PO BID [facility] Collagenase (Santyl) 1 gm TOP DAILY [facility] Enalapril Maleate (Vasotec) 40 mg PO DAILY [facility] Heparin Sodium (Porcine) (Heparin) 5,000 units SC Q12 [facility] Piperacillin Sod/Tazobactam Sod (Zosyn 2.25 Gm Iv Premix) 2.25 gm in 50 mls @ 100 mls/hr IVPB Q8H [facility] Vancomycin/Sodium Chloride (Vancomycin 1 Gm/Ns 200 Ml) 1 gm in 200 mls @ 166.7 mls/hr IVPB Q24H [facility] Stop: 11/03/17 01:01 Last Admin: 10/29/17 00:54 Dose: 166.7 mls/hr Insulin Aspart (Novolog) 20 unit SC ACTID [facility] Insulin Glargine (Lantus) 70 unit SC HS [facility] Insulin Human Regular (Novolin R) 0 unit SC ACHS [facility] PRN Reason: Protocol Last Admin: 10/29/17 09:07 Dose: 3 unit Ketorolac Tromethamine (Toradol) 10 mg IV Q6 PRN PRN Reason: Pain, moderate (4-7) Last Admin: 10/29/17 03:30 Dose: 10 mg Pantoprazole Sodium (Protonix Ec Tab) 40 mg PO DAILY [facility] Rosuvastatin Calcium (Crestor) 10 mg PO HS [facility] Saccharomyces Boulardii (Florastor) 250 mg PO BID [facility] Last Admin: 10/29/17 06:16 Dose: 250 mg - Labs Labs: 10/28/17 22:38 10/28/17 22:38
[2017-10-29] MEDS: Piperacill/Tazo 2.25gm in Dex 2.25 GM/50 ML BAG IVPB SCH ×2 (10:46→19:37)
[2017-10-29] MEDS: Pantoprazole 40 mg EC Tab PO SCH (11:17)
--- NOTE | 2017-10-29 12:24 | MRI ---
MRI right forefoot History: 3rd digit ulcer. Evaluate for osteomyelitis. Comparison: X-ray dated 10/28/2017 Technique: Multi-echo multiplanar sequences were performed through the right forefoot without the use of intravenous contrast. Findings: Soft tissue ulceration seen at the level of the 3rd distal phalanx. At that level, there is a 4 millimeter low-attenuation foci with some peripheral increased signal measuring 4 millimeters seen at the medial volar aspect at the level of the 3rd digit which may represent a small developing phlegmon collection. Adjacent minimal reactive edema seen within the 3rd distal phalanx with only minimal patchy decreased T1 signal. These findings may represent a mild early acute and or mild developing acute osteomyelitis. Clinical correlation. Mild reactive edema seen at the 3rd proximal phalanx, nonspecific. Mild reactive edema seen at the 1st distal phalanx, nonspecific. Clinical correlation. Severe hallux valgus deformity. 6 millimeter foci of decreased T1 signal and increased STIR signal seen at the 1st metatarsal head which may represent developing osteochondral change versus developing osteonecrosis. Clinical correlation. Blooming artifact from screws from prior hallux valgus repair. Impression: 1. Soft tissue ulceration seen at the level of the 3rd distal phalanx. At that level, there is a 4 millimeter low-attenuation foci with some peripheral increased signal measuring 4 millimeters seen at the medial volar aspect at the level of the 3rd digit which may represent a small developing phlegmon collection. Adjacent minimal reactive edema seen within the 3rd distal phalanx with only minimal patchy decreased T1 signal. These findings may represent a mild early acute and or mild developing acute osteomyelitis. Clinical correlation. 2. Mild reactive edema seen at the 3rd proximal phalanx, nonspecific. Mild reactive edema seen at the 1st distal phalanx, nonspecific. Clinical correlation. 3. Severe hallux valgus deformity. 6 millimeter foci of decreased T1 signal and increased STIR signal seen at the 1st metatarsal head which may represent developing osteochondral change versus developing osteonecrosis. Clinical correlation. 4. Blooming artifact from screws from prior hallux valgus repair.
[2017-10-29] MEDS ORDERED: (Novolog) Insulin Aspart, Recombinant 100 u/ml 10 ml vial ONE (12:36)
[2017-10-29] MEDS: (Novolog) Insulin Aspart, Recombinant 100 u/ml 10 ml vial SC SCH ×2 (12:46→18:27)
[2017-10-29] MEDS: Collagenase 250 Units/gm Ointment(30 gm) TOP SCH (12:46)
--- NOTE | 2017-10-29 18:59 | CP.PCM.PN ---
Subjective - Date & Time of Evaluation Date of Evaluation: 10/29/17 Time of Evaluation: 18:57 - Subjective Subjective: pt seen this PM for infected necrotic wound toe 3 rt foot .Pt does not Know etiology of wound . Objective - Vital Signs/Intake and Output Vital Signs (last 24 hours): Temp Pulse Resp BP Pulse Ox 97.6 F 78 20 156/84 H 98 10/29/17 13:53 10/29/17 13:53 10/29/17 14:37 10/29/17 18:26 10/29/17 13:53 - Medications Medications: Current Medications Acetaminophen (Tylenol 325mg Tab) 650 mg PO Q6 PRN PRN Reason: Pain, Mild (1-3) Last Admin: 10/29/17 15:40 Dose: 650 mg Carvedilol (Coreg) 25 mg PO BID [facility] Last Admin: 10/29/17 18:26 Dose: 25 mg Collagenase (Santyl) 1 gm TOP DAILY [facility] Last Admin: 10/29/17 12:46 Dose: 1 applic Enalapril Maleate (Vasotec) 40 mg PO DAILY [facility] Last Admin: 10/29/17 11:17 Dose: 40 mg Heparin Sodium (Porcine) (Heparin) 5,000 units SC Q12 [facility] Last Admin: 10/29/17 11:17 Dose: 5,000 units Piperacillin Sod/Tazobactam Sod (Zosyn 2.25 Gm Iv Premix) 2.25 gm in 50 mls @ 100 mls/hr IVPB Q8H [facility] Last Admin: 10/29/17 10:46 Dose: 100 mls/hr Vancomycin/Sodium Chloride (Vancomycin 1 Gm/Ns 200 Ml) 1 gm in 200 mls @ 166.7 mls/hr IVPB Q24H [facility] Stop: 11/03/17 01:01 Last Admin: 10/29/17 00:54 Dose: 166.7 mls/hr Insulin Aspart (Novolog) 20 unit SC ACTID [facility] Last Admin: 10/29/17 18:27 Dose: 20 unit Insulin Glargine (Lantus) 70 unit SC HS [facility] Insulin Human Regular (Novolin R) 0 unit SC ACHS [facility] PRN Reason: Protocol Last Admin: 10/29/17 18:28 Dose: 2 unit Ketorolac Tromethamine (Toradol) 10 mg IV Q6 PRN PRN Reason: Pain, moderate (4-7) Last Admin: 10/29/17 03:30 Dose: 10 mg Pantoprazole Sodium (Protonix Ec Tab) 40 mg PO DAILY [facility] Last Admin: 10/29/17 11:17 Dose: 40 mg Rosuvastatin Calcium (Crestor) 10 mg PO [facility] Saccharomyces Boulardii (Florastor) 250 mg PO BID [facility] Last Admin: 10/29/17 18:27 Dose: 250 mg - Labs Labs: 10/28/17 22:38 10/28/17 22:38
[2017-10-29] MEDS ORDERED: Glucagon Recombinant 1 mg Inj IM PRN (19:27)
[2017-10-29] MEDS ORDERED: Dextrose 50% SYRINGE Inj (50 ml) IV PRN (19:27)
[2017-10-29] MEDS: (Lantus) Insulin Glargine, Recombinant SC SCH (22:42)
[2017-10-30] MEDS: Piperacill/Tazo 2.25gm in Dex 2.25 GM/50 ML BAG IVPB SCH ×3 (00:27→15:55)
[2017-10-30] MEDS: Vancomycin 1 gm/NS 200 ml 1 GM/200 ML BAG IVPB SCH (01:00)
--- NOTE | 2017-10-30 07:29 | CP.PCM.PN ---
Subjective - Date & Time of Evaluation Date of Evaluation: 10/30/17 Time of Evaluation: 07:24 - Subjective Subjective: Medicine progress note for Dr. Claudio's service Patient was seen and examined at bedside in no acute distress. Patient was sitting eating breakfast. Patient reports feeling well and has no complaints except pain in his toe. Patient denies chest pain, shortness of breath, nausea, vomiting, fevers, headaches, and leg pain/swelling. Objective - Vital Signs/Intake and Output Vital Signs (last 24 hours): Temp Pulse Resp BP Pulse Ox 98.5 F 72 20 114/66 97 10/30/17 00:35 10/30/17 00:35 10/30/17 00:35 10/30/17 00:35 10/30/17 00:35 Intake and Output: 10/30/17 10/30/17 06:59 18:59 Intake Total 400 Balance 400 - Medications Medications: Current Medications Acetaminophen (Tylenol 325mg Tab) 650 mg PO Q6 PRN PRN Reason: Pain, Mild (1-3) Last Admin: 10/29/17 15:40 Dose: 650 mg Carvedilol (Coreg) 25 mg PO BID [facility] Last Admin: 10/29/17 18:26 Dose: 25 mg Collagenase (Santyl) 1 gm TOP DAILY [facility] Last Admin: 10/29/17 12:46 Dose: 1 applic Dextrose (Dextrose 50% Inj) 0 ml IV STAT PRN; Protocol PRN Reason: Hypoglycemia Protocol Dextrose (Glutose 15) 0 gm PO ONCE PRN; Protocol PRN Reason: Hypoglycemia Protocol Enalapril Maleate (Vasotec) 40 mg PO DAILY [facility] Last Admin: 10/29/17 11:17 Dose: 40 mg Glucagon (Glucagen Diagnostic Kit) 0 mg IM STAT PRN; Protocol PRN Reason: Hypoglycemia Protocol Heparin Sodium (Porcine) (Heparin) 5,000 units SC Q12 [facility] Last Admin: 10/29/17 22:42 Dose: 5,000 units Piperacillin Sod/Tazobactam Sod (Zosyn 2.25 Gm Iv Premix) 2.25 gm in 50 mls @ 100 mls/hr IVPB Q8H [facility] Last Admin: 10/30/17 00:27 Dose: 100 mls/hr Vancomycin/Sodium Chloride (Vancomycin 1 Gm/Ns 200 Ml) 1 gm in 200 mls @ 166.7 mls/hr IVPB Q24H [facility] Stop: 11/03/17 01:01 Last Admin: 10/30/17 01:00 Dose: 166.7 mls/hr Dextrose (Dextrose 5% In Water 1000 Ml) 1,000 mls @ 0 mls/hr IV .Q0M PRN; Protocol; Per Protocol PRN Reason: Hypoglycemia Protocol Insulin Aspart (Novolog) 20 unit SC ACTID [facility] Last Admin: 10/29/17 18:27 Dose: 20 unit Insulin Glargine (Lantus) 70 unit SC HS [facility] Last Admin: 10/29/17 22:42 Dose: 70 units Insulin Human Regular (Novolin R) 0 unit SC ACHS [facility] PRN Reason: Protocol Last Admin: 10/29/17 22:51 Dose: Not Given Ketorolac Tromethamine (Toradol) 10 mg IV Q6 PRN PRN Reason: Pain, moderate (4-7) Last Admin: 10/29/17 03:30 Dose: 10 mg Pantoprazole Sodium (Protonix Ec Tab) 40 mg PO DAILY [facility] Last Admin: 10/29/17 11:17 Dose: 40 mg Rosuvastatin Calcium (Crestor) 10 mg PO HS [facility] Last Admin: 10/29/17 22:42 Dose: 10 mg Saccharomyces Boulardii (Florastor) 250 mg PO BID [facility] Last Admin: 10/29/17 18:27 Dose: 250 mg - Labs Labs: 10/28/17 22:38 10/28/17 22:38 - Constitutional Appears: No Acute Distress - Head Exam Head Exam: ATRAUMATIC, NORMAL INSPECTION - Eye Exam Eye Exam: EOMI, Normal appearance - ENT Exam ENT Exam: Mucous Membranes Moist - Respiratory Exam Respiratory Exam: Clear to Ausculation Bilateral, NORMAL BREATHING PATTERN. absent: Rales, Rhonchi, Wheezes, Respiratory Distress - Cardiovascular Exam Cardiovascular Exam: REGULAR RHYTHM, +S1, +S2 - GI/Abdominal Exam GI & Abdominal Exam: Soft, Normal Bowel Sounds. absent: Distended, Tenderness - Extremities Exam Extremities Exam: Tenderness (right 3rd toe; wrapped in guaze- dressing clean, dry, intact) - Neurological Exam Neurological Exam: Alert, Awake, Oriented x3 - Psychiatric Exam Psychiatric exam: Normal Affect, Normal Mood - Skin Skin Exam: Dry, Intact, Warm Assessment and Plan - Assessment and Plan (Free Text) Plan: 1. Right foot ulcer with evidence of Osteomyelitis * Workers Compensation Claims Supervisor, Dr. Quinn, consulted help appreciated * Vancomycin 1 gm IV daily * Zosyn 2.25 gm Q8H * Wound cultures: gram negative jorge luis, gram positive cocci * Blood cultures- negative * MRI on 10/29/17: Soft tissue ulceration seen at the level of the 3rd distal phalanx. At that level, there is a 4 millimeter low-attenuation foci with some peripheral increased signal measuring 4 millimeters seen at the medial volar aspect at the level of the 3rd digit which may represent a small developing phlegmon collection. Adjacent minimal reactive edema seen within the 3rd distal phalanx with only minimal patchy decreased T1 signal. These findings may represent a mild early acute and or mild developing acute osteomyelitis. * Severe hallux valgus deformity. 6 millimeter foci of decreased T1 signal and increased STIR signal seen at the 1st metatarsal head which may represent developing osteochondral change versus developing osteonecrosis. * ID consult, Dr. Cortes, help appreciated * Podiatry, Dr. Quinn, help appreciated * as per podiatry, patient scheduled for OR on , 10/31/17 for debridement of right 3rd toe ulceration. * NPO@MN, heparin held * Continue management as per podiatry. 2. History of Hypertension * Continue Home med Coreg 25 mg PO BID * Continue Home med Enalapril 40 mg PO daily 3. History of Diabetes * Hold home Metformin 1000 mg PO BID for now * Continue Home med Lantus 70 units HS * Continue Insulin Aspart 20 units ACTID (Home med Humalog 20 units SC ACTID not on formulary) * HgbA1c 10.1 * Regular ISS * Accuchecks 4. Prophylactic Measure * Florastor 250 mg PO BID * Protonix 40 mg PO daily * Heparin 5000 units SC Q12 * Diabetic Diet Case Discussed with Dr. Claudio
[2017-10-30 07:44] LABS: BASO # 0.1 K/uL (0.0-0.2); BASO % 0.6 % (0.0-2.0); EOS # 0.4 K/uL (0.0-0.7); EOS % 3.4 % (0.0-4.0); HEMOGLOBIN 12.7 g/dL (12.0-18.0); LYMPH # 2.1 K/uL (1.0-4.3); LYMPH % 20.5 % (20.0-40.0); MEAN CELL VOLUME 90.4 fL (80.0-94.0); MEAN CORPUSCULAR HEMOGLOBIN 30.4 pg (27.0-31.0); MEAN CORPUSCULAR HGB CONC 33.6 g/dL (33.0-37.0); MEAN PLATELET VOLUME 7.2 fL (7.2-11.7); MONO # 0.8 K/uL (0.0-0.8); MONO % 7.4 % (0.0-10.0); NEUT # 7.1 K/uL (1.8-7.0); NEUT % 68.1 % (50.0-75.0); RBC 4.17 Mil/uL (4.40-5.90); RED CELL DISTRIBUTION WIDTH 13.2 % (11.5-14.5); WHITE BLOOD COUNT 10.4 K/uL (4.8-10.8)
[2017-10-30] MEDS: (Novolin R) Insulin Human Regular 100 units/ml vial SC SCH ×4 (08:24→22:22)
[2017-10-30] MEDS: (Novolog) Insulin Aspart, Recombinant 100 u/ml 10 ml vial SC SCH ×3 (08:24→17:00)
[2017-10-30 08:35] LABS: ALB/GLOB RATIO 1.2 (1.0-2.1); ALBUMIN 3.8 g/dL (3.5-5.0); ALT/SGPT 68 U/L (21-72); AST/SGOT 43 U/L (17-59); BLOOD UREA NITROGEN 15 mg/dL (9-20); CALCIUM 9.1 mg/dl (8.6-10.4); GFR AFRICAN-AMERICAN > 60; GFR NON-AFRICAN AMERICAN > 60; MAGNESIUM 1.7 mg/dL (1.6-2.3)
[2017-10-30] MEDS: Pantoprazole 40 mg EC Tab PO SCH (09:38)
[2017-10-30] MEDS: Saccharomyces Boulardi 250 mg Cap PO SCH ×2 (09:38→18:09)
[2017-10-30] MEDS: Collagenase 250 Units/gm Ointment(30 gm) TOP SCH (13:09)
[2017-10-30 14:09] LABS: INR 1.1; PROTHROMBIN TIME 12.1 SECONDS (9.7-12.2)
--- NOTE | 2017-10-30 14:37 | CP.PCM.PN ---
Subjective - Date & Time of Evaluation Date of Evaluation: 10/30/17 Time of Evaluation: 08:30 - Subjective Subjective: Podiatry Progress Note- Dr. Quinn 52 yo diabetic male seen at the [facility] this morning concerning right 3d digit ulceration. Pt is seen resting comfortably in the bed at time of visit. Appears AAOx3 and NAD. Only complains of mild tenderness to the affected toe today. Says subjective fever and chills have resolved, denies n/v/cp/sob. Pt says that he is aware of plan for OR tomorrow for debridement of toe. Objective - Vital Signs/Intake and Output Vital Signs (last 24 hours): Temp Pulse Resp BP Pulse Ox 98.0 F 71 20 170/79 H 100 10/30/17 09:11 10/30/17 09:11 10/30/17 09:11 10/30/17 09:38 10/30/17 09:11 Intake and Output: 10/30/17 10/30/17 06:59 18:59 Intake Total 400 800 Balance 400 800 - Medications Medications: Current Medications Acetaminophen (Tylenol 325mg Tab) 650 mg PO Q6 PRN PRN Reason: Pain, Mild (1-3) Last Admin: 10/29/17 15:40 Dose: 650 mg Carvedilol (Coreg) 25 mg PO BID [facility] Last Admin: 10/30/17 09:37 Dose: 25 mg Collagenase (Santyl) 1 gm TOP DAILY [facility] Last Admin: 10/30/17 13:09 Dose: Not Given Dextrose (Dextrose 50% Inj) 0 ml IV STAT PRN; Protocol PRN Reason: Hypoglycemia Protocol Dextrose (Glutose 15) 0 gm PO ONCE PRN; Protocol PRN Reason: Hypoglycemia Protocol Enalapril Maleate (Vasotec) 40 mg PO DAILY [facility] Last Admin: 10/30/17 09:38 Dose: 40 mg Glucagon (Glucagen Diagnostic Kit) 0 mg IM STAT PRN; Protocol PRN Reason: Hypoglycemia Protocol Heparin Sodium (Porcine) (Heparin) 5,000 units SC Q12 [facility] Last Admin: 10/30/17 09:38 Dose: 5,000 units Piperacillin Sod/Tazobactam Sod (Zosyn 2.25 Gm Iv Premix) 2.25 gm in 50 mls @ 100 mls/hr IVPB Q8H [facility] Last Admin: 10/30/17 08:00 Dose: 100 mls/hr Vancomycin/Sodium Chloride (Vancomycin 1 Gm/Ns 200 Ml) 1 gm in 200 mls @ 166.7 mls/hr IVPB Q24H [facility] Stop: 11/03/17 01:01 Last Admin: 10/30/17 01:00 Dose: 166.7 mls/hr Dextrose (Dextrose 5% In Water 1000 Ml) 1,000 mls @ 0 mls/hr IV .Q0M PRN; Protocol; Per Protocol PRN Reason: Hypoglycemia Protocol Insulin Aspart (Novolog) 20 unit SC ACTID [facility] Last Admin: 10/30/17 12:25 Dose: 20 unit Insulin Glargine (Lantus) 70 unit SC HS [facility] Last Admin: 10/29/17 22:42 Dose: 70 units Insulin Human Regular (Novolin R) 0 unit SC ACHS [facility] PRN Reason: Protocol Last Admin: 10/30/17 12:25 Dose: 2 unit Ketorolac Tromethamine (Toradol) 10 mg IV Q6 PRN PRN Reason: Pain, moderate (4-7) Last Admin: 10/29/17 03:30 Dose: 10 mg Pantoprazole Sodium (Protonix Ec Tab) 40 mg PO DAILY [facility] Last Admin: 10/30/17 09:38 Dose: 40 mg Rosuvastatin Calcium (Crestor) [address] [facility] Last Admin: 10/29/17 22:42 Dose: 10 mg Saccharomyces Boulardii (Florastor) 250 mg PO BID [facility] Last Admin: 10/30/17 09:38 Dose: 250 mg - Labs Labs: 10/30/17 07:36 10/30/17 07:36 PT 12.1 SECONDS (9.7-12.2) 10/30/17 13:48 INR 1.1 10/30/17 13:48 APTT 31 SECONDS (21-34) 10/30/17 13:48 - Constitutional Appears: Non-toxic, No Acute Distress - Extremities Exam Extremities Exam: absent: Calf Tenderness Additional comments: RLE exam: dressing appears c/d/i with no strikethrough evident VASC: DP 2/4 and PT pulses are palpable (1/4 both), cap refill < 3 sec to all digits, slight edema is noted to right forefoot DERM: there is a full thickness ulceration measuring approx. 2.0x3.0x0.4 cm to medial distal right 3rd toe, + probe to bone, malodorous, no active drainage, wound base mainly fibrotic with slough and necrotic tissue noted, erythema noted consistent with cellulitis, no streaking, no fluctuate NEURO: gross pedal sensation is intact ORTHO: tenderness appreciated on palpation of distal 3rd toe. - Neurological Exam Neurological Exam: Alert, Awake, Oriented x3 - Psychiatric Exam Psychiatric exam: Normal Affect, Normal Mood Assessment and Plan - Assessment and Plan (Free Text) Assessment: 52 yo male pt w/ right 3rddigit ulceration and cellulitis 2/2 diabetic neuropathy Plan: Pt S&E at the bedside Plan discussed with attending Dr. Quinn in detail Chart, labs and vitals reviewed: afebrile, wbc trending down 10.4 today (down from 12.5) ESR moderately elevated (41), CRP elevated at 15 Wound cx (10/29/17): prelim gram neg jorge luis, gram + cocci RLE x-ray (10/29/17): neg for OM RLE MRI (10/29/17): small phlegmon collection with adjacent minimal reactive edema at 3rd distal phalanx (possible early OM) B/L LE arterial duplex taken: report pending Plan for OR tomorrow 10/31 w/ Dr. Quinn at 8:30 AM for debridement of right 3rd toe ulceration NPO past midnight tonight, hold all anti-coags, will require medical clearance from primary team c/w IV abx All questions and concerns addressed with patient in detail Will follow
--- NOTE | 2017-10-30 15:58 | VASCLAB ---
STUDY DESCRIPTION: HISTORY: evaluate pedal blood flow (ulcer R 3rd digit) PRIORS: None. TECHNIQUE: Pulse volume recording waveforms and segmental pressures of bilateral lower extremities at multiple levels were obtained. Ankle Brachial Indices (ABIs) were calculated. Report prepared by MANUELITO Hendricks, RVT RIGHT LOWER EXTREMITY: * Brachial artery: Pressure - 128 mmHg. * High thigh: Pressure - 188 mmHg: Ratio - 1.44: PVR waveform - Pulsatile * Low thigh: Pressure - 190 mmHg: Ratio - 1.45 PVR waveform: Pulsatile * Calf: Pressure - 164 mmHg: Ratio - 1.25 PVR waveform: Pulsatile * Posterior tibial Artery: Pressure - 145 mmHg: Ratio - 1.11 PVR waveform: Pulsatile * Dorsalis pedis Artery: Pressure - 134 mmHg: Ratio - 1.02 PVR waveform: Pulsatile * Great toe: Pressure - mmHg: Ratio - PVR waveform: Ankle brachial index (ERICH): 1.11 LEFT LOWER EXTREMITY: * Brachial artery: Pressure - 131 mmHg. * High thigh: Pressure - 158 mmHg: Ratio - 1.21: PVR waveform - Pulsatile * Low thigh: Pressure - 158 mmHg: Ratio - 1.21 PVR waveform: Pulsatile * Calf: Pressure - 147 mmHg: Ratio - 1.12 PVR waveform: Pulsatile * Posterior tibial Artery: Pressure - 139 mmHg: Ratio - 1.06 PVR waveform: Pulsatile * Dorsalis pedis Artery: Pressure - 126 mmHg: Ratio - 0.93 PVR waveform: Pulsatile * Great toe: Pressure - mmHg: Ratio - PVR waveform: Ankle brachial index (ERICH): 1.06 OTHER FINDINGS: Right: Left: IMPRESSION: Right: There was no evidence of hemodynamically significant arterial insufficiency in the right lower extremity. Left: There was no evidence of hemodynamically significant arterial insufficiency in the left lower extremity.
--- NOTE | 2017-10-30 16:24 | CARD ---
APPROVED REPORT EKG Measurement Heart [id number] <Conclusion> Normal sinus rhythm Normal ECG
--- NOTE | 2017-10-30 18:11 | CP.PCM.CON ---
History of Present Illness - History of Present Illness History of Present Illness: 52 y.o male with PMH of DM, HTN, High cholesterol consulted in the ED for right 3rd digit ulceration. Patient reports that he noticed the ulceration for the first time today. He reports he feels throbbing pain to his 3rd digit with palpation. He reports the pain 8/10 and reports being localized to the 3rd right digit. Patient reports feeling chills and fever. He reports that he may be coming up the flu. Patient sees a outside supervisor joiners Dr. Quoc Valle. Patient denies n/sob/cp/v. has gangrene 3rd digit right foot needs amputation gabriel PMH:DM, HTN. High cholesterol PSH: tonsiolectomy, right foot surgery MEDS: see meds list ALL: NKDA FH: mother- DM, stroke, kidney failure, breast cancer, HTN, high cholesterol father-DM, HTN, liver cancer SH: 22 year smoker, denies drinking or ilicited drug use Review of Systems - Constitutional Constitutional: Anorexia, Fever - EENT Eyes: absent: As Per HPI, Blind Spots, Blurred Vision, Change in Vision, Decreased Night Vision, Diplopia, Discharge, Dry Eye, Exophthalmos, Floaters, Irritation, Itchy Eyes, Loss of Peripheral Vision, Pain, Photophobia, Requires Corrective Lenses, Sees Flashes, Spots in Vision, Tunnel Vision, Other Visual Disturbances, Loss of Vision, Other Ears: absent: As Per HPI, Decreased Hearing, Ear Discharge, Ear Pain, Tinnitus, Abnormal Hearing, Disequilibrium, Dizziness, Other Nose/Mouth/Throat: absent: As Per HPI, Epistaxis, Nasal Congestion, Nasal Discharge, Nasal Obstruction, Nasal Trauma, Nose Pain, Post Nasal Drip, Sinus Pain, Sinus Pressure, Bleeding Gums, Change in Voice, Dental Pain, Dry Mouth, Dysphagia, Halitosis, Hoarsness, Lip Swelling, Mouth Lesions, Mouth Pain, Odynophagia, Sore Throat, Throat Swelling, Tongue Swelling, Facial Pain, Neck Pain, Neck Mass, Other - Cardiovascular Cardiovascular: absent: As Per HPI, Acrocyanosis, Chest Pain, Chest Pain at Rest , Chest Pain with Activity, Claudication, Diaphoresis, Dyspnea, Dyspnea on Exertion, Edema, Irregular Heart Rhythm, Pain Radiating to Arm/Neck/Jaw, Leg Edema, Leg Ulcers, Lightheadedness, Orthopnea, Palpitations, Paroxysmal Nocturnal Dyspnea, Pedal Edema, Radiating Pain, Rapid Heart Rate, Slow Heart Rate, Syncope, Other - Respiratory Respiratory: absent: As Per HPI, Cough, Dyspnea, Hemoptysis, Dyspnea on Exertion , Wheezing, Snoring, Stridor, Pain on Inspiration, Chest Congestion, Excessive Mucous Production, Change in Mucous Color, Pain with Coughing, Other - Gastrointestinal Gastrointestinal: absent: As Per HPI, Abdominal Pain, Belching, Bloating, Change in Bowel Habits, Change in Stool Character, Coffee Ground Emesis, Constipation, Cramping, Diarrhea, Dyspepsia, Dysphagia, Early Satiety, Excessive Flatus, Fecal Incontinence, Heartburn, Hematemesis, Hematochezia, Loose Stools, Melena, Nausea, Odynophagia, Temesmus, Vomiting, Other - Genitourinary Genitourinary: absent: As Per HPI, Change in Urinary Stream, Difficulty Urinating, Dysuria, Flank Pain, Hematuria, Pyuria, Nocturia, Urinary Incontinence, Urinary Frequency, Urinary Hesitance, Urinary Urgency, Voiding Freq/Small Amts, Freq UTI, Hx Renal/Bladder Calculi, Hx /Renal Surgery, Bladder Distension, Other - Musculoskeletal Musculoskeletal: As Per HPI - Integumentary Integumentary: As Per HPI, Skin Pain, Wounds - Neurological Neurological: As Per HPI - Psychiatric Psychiatric: absent: As Per HPI, Abnormal Sleep Pattern, Anhedonia, Anxiety, Auditory Hallucinations, Behavioral Changes, Change in Appetite, Change in Libido, Confusion, Depression, Difficulty Concentrating, Hallucinations, Homicidal Ideation, Hopelessness, Irritability, Memory Loss, Mood Swings, Panic Attacks, Paranoia, Suicidal Ideation, Visual Hallucinations, Tactile Hallucinations, Other - Endocrine Endocrine: As Per HPI - Hematologic/Lymphatic Hematologic: absent: As Per HPI, Easy Bleeding, Easy Bruising, Lymphadenopathy, Other Past Patient History - Past Medical History & Family History Past Medical History?: Yes - Past Social History Smoking Status: Light Smoker < 10 Cigarettes Daily - CARDIAC Hx Hypercholesterolemia: Yes Hx Hypertension: Yes - PULMONARY Hx Respiratory Disorders: No - NEUROLOGICAL Hx Neurological Disorder: No - HEENT Hx Cataracts: Yes (Right eye) - RENAL Hx Chronic Kidney Disease: No - ENDOCRINE/METABOLIC Hx Diabetes Mellitus Type 1: Yes - HEMATOLOGICAL/ONCOLOGICAL Hx Blood Disorders: No - INTEGUMENTARY Hx Dermatological Problems: No - MUSCULOSKELETAL/RHEUMATOLOGICAL Hx Falls: No Hx Fractures: Yes (right foot in 2013) - GASTROINTESTINAL Hx Pancreatitis: Yes - GENITOURINARY/GYNECOLOGICAL Hx Genitourinary Disorders: No - PSYCHIATRIC Hx Psychophysiologic Disorder: No Hx Substance Use: No - SURGICAL HISTORY Hx Surgeries: Yes Other/Comment: B/L FOOT SX - ANESTHESIA Hx Anesthesia: Yes Hx Anesthesia Reactions: No Meds Allergies/Adverse Reactions: Allergies Allergy/AdvReac Type Severity Reaction Status Date / Time No Known Allergies Allergy Verified 07/08/17 14:49 - Medications Medications: Current Medications Acetaminophen (Tylenol 325mg Tab) 650 mg PO Q6 PRN PRN Reason: Pain, Mild (1-3) Last Admin: 10/30/17 15:56 Dose: 650 mg Carvedilol (Coreg) 25 mg PO BID [facility] Last Admin: 10/30/17 09:37 Dose: 25 mg Collagenase (Santyl) 1 gm TOP DAILY [facility] Last Admin: 10/30/17 13:09 Dose: Not Given Dextrose (Dextrose 50% Inj) 0 ml IV STAT PRN; Protocol PRN Reason: Hypoglycemia Protocol Dextrose (Glutose 15) 0 gm PO ONCE PRN; Protocol PRN Reason: Hypoglycemia Protocol Enalapril Maleate (Vasotec) 40 mg PO DAILY [facility] Last Admin: 10/30/17 09:38 Dose: 40 mg Glucagon (Glucagen Diagnostic Kit) 0 mg IM STAT PRN; Protocol PRN Reason: Hypoglycemia Protocol Heparin Sodium (Porcine) (Heparin) 5,000 units SC Q12 [facility] Last Admin: 10/30/17 09:38 Dose: 5,000 units Piperacillin Sod/Tazobactam Sod (Zosyn 2.25 Gm Iv Premix) 2.25 gm in 50 mls @ 100 mls/hr IVPB Q8H [facility] Last Admin: 10/30/17 15:55 Dose: 100 mls/hr Vancomycin/Sodium Chloride (Vancomycin 1 Gm/Ns 200 Ml) 1 gm in 200 mls @ 166.7 mls/hr IVPB Q24H [facility] Stop: 11/03/17 01:01 Last Admin: 10/30/17 01:00 Dose: 166.7 mls/hr Dextrose (Dextrose 5% In Water 1000 Ml) 1,000 mls @ 0 mls/hr IV .Q0M PRN; Protocol; Per Protocol PRN Reason: Hypoglycemia Protocol Insulin Aspart (Novolog) 20 unit SC ACTID [facility] Last Admin: 10/30/17 12:25 Dose: 20 unit Insulin Glargine (Lantus) 70 unit SC HS [facility] Last Admin: 10/29/17 22:42 Dose: 70 units Insulin Human Regular (Novolin R) 0 unit SC ACHS [facility] PRN Reason: Protocol Last Admin: 10/30/17 12:25 Dose: 2 unit Ketorolac Tromethamine (Toradol) 10 mg IV Q6 PRN PRN Reason: Pain, moderate (4-7) Last Admin: 10/29/17 03:30 Dose: 10 mg Pantoprazole Sodium (Protonix Ec Tab) 40 mg PO DAILY [facility] Last Admin: 10/30/17 09:38 Dose: 40 mg Rosuvastatin Calcium (Crestor) 10 mg PO HS [facility] Last Admin: 10/29/17 22:42 Dose: 10 mg Saccharomyces Boulardii (Florastor) 250 mg PO BID [facility] Last Admin: 10/30/17 09:38 Dose: 250 mg Physical Exam - Constitutional Appears: Non-toxic, Chronically Ill - Head Exam Head Exam: NORMOCEPHALIC - Eye Exam Eye Exam: PERRL. absent: Scleral icterus - ENT Exam ENT Exam: Mucous Membranes Dry - Neck Exam Neck exam: Negative for: Lymphadenopathy - Respiratory Exam Respiratory Exam: Decreased Breath Sounds, Clear to Auscultation Bilateral - Cardiovascular Exam Cardiovascular Exam: REGULAR RHYTHM, +S1, +S2 - GI/Abdominal Exam GI & Abdominal Exam: Diminished Bowel Sounds, Soft. absent: Tenderness - Rectal Exam Rectal Exam: Deferred - Exam Exam: NORMAL INSPECTION - Extremities Exam Extremities exam: Positive for: pedal edema, tenderness, pedal pulses present. Negative for: calf tenderness Additional comments: gangrene 3rd digit right foot - Back Exam Back exam: absent: CVA tenderness (L), CVA tenderness (R) - Neurological Exam Neurological exam: Alert, CN II-XII Intact, Oriented x3, Reflexes Normal - Psychiatric Exam Psychiatric exam: Normal Mood - Skin Skin Exam: Dry Results - Vital Signs Recent Vital Signs: Last Vital Signs Temp 98.3 F 10/30/17 15:28 Pulse 74 10/30/17 15:28 Resp 20 10/30/17 15:28 BP 129/72 10/30/17 15:28 Pulse Ox 96 10/30/17 15:28 - Labs Result Diagrams: 10/30/17 07:36 10/30/17 07:36 Labs: Laboratory Results - last 24 hr 10/29/17 10/30/17 10/30/17 21:14 01:55 06:39 WBC RBC Hgb Hct MCV MCH MCHC RDW Plt Count MPV Neut % (Auto) Lymph % (Auto) Jerome % (Auto) Eos % (Auto) Baso % (Auto) Neut # Lymph # Jerome # Eos # Baso # ESR PT INR APTT Sodium Potassium Chloride Carbon Dioxide Anion Gap BUN Creatinine Est GFR ( Amer) Est GFR (Non-Af Amer) POC Glucose (mg/dL) 154 H 158 H 205 H Random Glucose Calcium Phosphorus Magnesium Total Bilirubin AST ALT Alkaline Phosphatase C-React Prot High Sens Total Protein Albumin Globulin Albumin/Globulin Ratio 10/30/17 10/30/17 10/30/17 07:36 07:36 07:36 WBC 10.4 RBC 4.17 L Hgb 12.7 Hct 37.7 MCV 90.4 MCH 30.4 MCHC 33.6 RDW 13.2 Plt Count 367 MPV 7.2 Neut % (Auto) 68.1 Lymph % (Auto) 20.5 Jerome % (Auto) 7.4 Eos % (Auto) 3.4 Baso % (Auto) 0.6 Neut # 7.1 H Lymph # 2.1 Jerome # 0.8 Eos # 0.4 Baso # 0.1 ESR 41 H PT INR APTT Sodium 132 Potassium 4.4 Chloride 101 Carbon Dioxide 23 Anion Gap 12 BUN 15 Creatinine 0.8 Est GFR ( Amer) > 60 Est GFR (Non-Af Amer) > 60 POC Glucose (mg/dL) Random Glucose 226 H Calcium 9.1 Phosphorus 3.5 Magnesium 1.7 Total Bilirubin 0.4 AST 43 ALT 68 Alkaline Phosphatase 88 C-React Prot High Sens > 15.00 H Total Protein 6.8 Albumin 3.8 Globulin 3.0 Albumin/Globulin Ratio 1.2 10/30/17 10/30/17 10/30/17 11:38 13:48 16:09 WBC RBC Hgb Hct MCV MCH MCHC RDW Plt Count MPV Neut % (Auto) Lymph % (Auto) Jerome % (Auto) Eos % (Auto) Baso % (Auto) Neut # Lymph # Jerome # Eos # Baso # ESR PT 12.1 INR 1.1 APTT 31 Sodium Potassium Chloride Carbon Dioxide Anion Gap BUN Creatinine Est GFR ( Amer) Est GFR (Non-Af Amer) POC Glucose (mg/dL) 160 H 84 Random Glucose Calcium Phosphorus Magnesium Total Bilirubin AST ALT Alkaline Phosphatase C-React Prot High Sens Total Protein Albumin Globulin Albumin/Globulin Ratio Assessment & Plan (1) Diabetic toe ulcer Status: Acute (2) Chest pain Status: Acute (3) Diabetes mellitus Status: Acute (4) HTN (hypertension) Status: Acute - Assessment and Plan (Free Text) Assessment: toe is infected necrotic and foul smelling needs amp
[2017-10-30] MEDS: (Lantus) Insulin Glargine, Recombinant SC SCH (22:22)
[2017-10-31] MEDS: Piperacill/Tazo 2.25gm in Dex 2.25 GM/50 ML BAG IVPB SCH ×3 (00:16→17:00)
[2017-10-31] MEDS: Vancomycin 1 gm/NS 200 ml 1 GM/200 ML BAG IVPB SCH (01:18)
--- NOTE | 2017-10-31 06:50 | CP.PCM.PN ---
<Charlee Altamirano - Last Filed: 10/31/17 18:20> Subjective - Date & Time of Evaluation Date of Evaluation: 10/31/17 Time of Evaluation: 06:50 - Subjective Subjective: Medicine progress note for Dr. Claudio's service Patient was seen and examined at bedside in no acute distress. Patient was sleeping comfortably in bed. Patient reports feeling well and has no complaints except pain in his toe and neuropathy in both feet. Patient denies chest pain, shortness of breath, nausea, vomiting, fevers, headaches, and leg pain/swelling. Objective - Vital Signs/Intake and Output Vital Signs (last 24 hours): Temp Pulse Resp BP Pulse Ox 98 F 71 20 122/74 96 10/30/17 23:45 10/30/17 23:45 10/30/17 23:45 10/30/17 23:45 10/30/17 23:45 Intake and Output: 10/30/17 10/31/17 18:59 06:59 Intake Total 1400 950 Balance 1400 950 - Medications Medications: Current Medications Acetaminophen (Tylenol 325mg Tab) 650 mg PO Q6 PRN PRN Reason: Pain, Mild (1-3) Last Admin: 10/30/17 15:56 Dose: 650 mg Carvedilol (Coreg) 25 mg PO BID [facility] Last Admin: 10/30/17 18:10 Dose: 25 mg Collagenase (Santyl) 1 gm TOP DAILY [facility] Last Admin: 10/30/17 13:09 Dose: Not Given Dextrose (Dextrose 50% Inj) 0 ml IV STAT PRN; Protocol PRN Reason: Hypoglycemia Protocol Dextrose (Glutose 15) 0 gm PO ONCE PRN; Protocol PRN Reason: Hypoglycemia Protocol Enalapril Maleate (Vasotec) 40 mg PO DAILY [facility] Last Admin: 10/30/17 09:38 Dose: 40 mg Glucagon (Glucagen Diagnostic Kit) 0 mg IM STAT PRN; Protocol PRN Reason: Hypoglycemia Protocol Heparin Sodium (Porcine) (Heparin) 5,000 units SC Q12 [facility] Last Admin: 10/30/17 09:38 Dose: 5,000 units Piperacillin Sod/Tazobactam Sod (Zosyn 2.25 Gm Iv Premix) 2.25 gm in 50 mls @ 100 mls/hr IVPB Q8H [facility] Last Admin: 10/31/17 00:16 Dose: 100 mls/hr Vancomycin/Sodium Chloride (Vancomycin 1 Gm/Ns 200 Ml) 1 gm in 200 mls @ 166.7 mls/hr IVPB Q24H [facility] Stop: 11/03/17 01:01 Last Admin: 10/31/17 01:18 Dose: 166.7 mls/hr Dextrose (Dextrose 5% In Water 1000 Ml) 1,000 mls @ 0 mls/hr IV .Q0M PRN; Protocol; Per Protocol PRN Reason: Hypoglycemia Protocol Insulin Aspart (Novolog) 20 unit SC ACTID [facility] Last Admin: 10/30/17 17:00 Dose: Not Given Insulin Glargine (Lantus) 70 unit SC HS [facility] Last Admin: 10/30/17 22:22 Dose: 70 units Insulin Human Regular (Novolin R) 0 unit SC ACHS [facility] PRN Reason: Protocol Last Admin: 10/30/17 22:22 Dose: Not Given Ketorolac Tromethamine (Toradol) 10 mg IV Q6 PRN PRN Reason: Pain, moderate (4-7) Last Admin: 10/29/17 03:30 Dose: 10 mg Pantoprazole Sodium (Protonix Ec Tab) 40 mg PO DAILY [facility] Last Admin: 10/30/17 09:38 Dose: 40 mg Rosuvastatin Calcium (Crestor) 10 mg PO [facility] Last Admin: 10/30/17 22:21 Dose: 10 mg Saccharomyces Boulardii (Florastor) 250 mg PO BID [facility] Last Admin: 10/30/17 18:09 Dose: 250 mg - Labs Labs: 10/30/17 07:36 10/30/17 07:36 PT 12.1 SECONDS (9.7-12.2) 10/30/17 13:48 INR 1.1 10/30/17 13:48 APTT 31 SECONDS (21-34) 10/30/17 13:48 - Additional Findings Additional findings: - Constitutional Appears: No Acute Distress - Head Exam Head Exam: ATRAUMATIC, NORMAL INSPECTION - Eye Exam Eye Exam: EOMI, Normal appearance - ENT Exam ENT Exam: Mucous Membranes Moist - Respiratory Exam Respiratory Exam: Clear to Ausculation Bilateral, NORMAL BREATHING PATTERN. absent: Rales, Rhonchi, Wheezes, Respiratory Distress - Cardiovascular Exam Cardiovascular Exam: REGULAR RHYTHM, +S1, +S2 - GI/Abdominal Exam GI & Abdominal Exam: Soft, Normal Bowel Sounds. absent: Distended, Tenderness - Extremities Exam Extremities Exam: Tenderness (right 3rd toe; wrapped in guaze- dressing clean, dry, intact) - Neurological Exam Neurological Exam: Alert, Awake, Oriented x3 - Psychiatric Exam Psychiatric exam: Normal Affect, Normal Mood - Skin Skin Exam: Dry, Intact, Warm Assessment and Plan - Assessment and Plan (Free Text) Plan: 1. Right foot ulcer with evidence of Osteomyelitis * Pump Service Supervisor, Dr. Quinn, consulted help appreciated * Vancomycin 1 gm IV daily * Zosyn 2.25 gm Q8H * Wound cultures: gram negative jorge luis, gram positive cocci * Blood cultures- negative * MRI on 10/29/17: Soft tissue ulceration seen at the level of the 3rd distal phalanx. At that level, there is a 4 millimeter low-attenuation foci with some peripheral increased signal measuring 4 millimeters seen at the medial volar aspect at the level of the 3rd digit which may represent a small developing phlegmon collection. Adjacent minimal reactive edema seen within the 3rd distal phalanx with only minimal patchy decreased T1 signal. These findings may represent a mild early acute and or mild developing acute osteomyelitis. * Severe hallux valgus deformity. 6 millimeter foci of decreased T1 signal and increased STIR signal seen at the 1st metatarsal head which may represent developing osteochondral change versus developing osteonecrosis. * ID consult, Dr. Cortes, help appreciated * Podiatry, Dr. Quinn, help appreciated * as per podiatry, patient scheduled for OR on today, 10/31/17 for debridement of right 3rd toe ulceration. * NPO and heparin held * Continue management as per podiatry. 2. History of Hypertension * Continue Home med Coreg 25 mg PO BID * Continue Home med Enalapril 40 mg PO daily 3. History of Diabetes * Hold home Metformin 1000 mg PO BID for now * Continue Home med Lantus 70 units HS * Continue Insulin Aspart 20 units ACTID (Home med Humalog 20 units SC ACTID not on formulary) * HgbA1c 10.1 * Regular ISS * Accuchecks 4. Prophylactic Measure * Florastor 250 mg PO BID * Protonix 40 mg PO daily * Heparin 5000 units SC Q12 * Diabetic Diet Case Discussed with Dr. Claudio <Joseph Claudio Jr. - Last Filed: 10/31/17 19:37> Objective - Vital Signs/Intake and Output Vital Signs (last 24 hours): Temp Pulse Resp BP Pulse Ox 98.9 F 70 20 125/75 98 10/31/17 15:46 10/31/17 15:46 10/31/17 15:46 10/31/17 17:54 10/31/17 15:46 Intake and Output: 10/31/17 11/01/17 18:59 06:59 Intake Total 1150 Balance 1150 - Medications Medications: Current Medications Acetaminophen (Tylenol 325mg Tab) 650 mg PO Q6 PRN PRN Reason: Pain, Mild (1-3) Last Admin: 10/30/17 15:56 Dose: 650 mg Carvedilol (Coreg) 25 mg PO BID [facility] Last Admin: 10/31/17 17:54 Dose: 25 mg Collagenase (Santyl) 1 gm TOP DAILY [facility] Last Admin: 10/31/17 10:00 Dose: Not Given Dextrose (Dextrose 50% Inj) 0 ml IV STAT PRN; Protocol PRN Reason: Hypoglycemia Protocol Dextrose (Glutose 15) 0 gm PO ONCE PRN; Protocol PRN Reason: Hypoglycemia Protocol Enalapril Maleate (Vasotec) 40 mg PO DAILY [facility] Last Admin: 10/31/17 13:03 Dose: 40 mg Glucagon (Glucagen Diagnostic Kit) 0 mg IM STAT PRN; Protocol PRN Reason: Hypoglycemia Protocol Heparin Sodium (Porcine) (Heparin) 5,000 units SC Q12 [facility] Last Admin: 10/30/17 09:38 Dose: 5,000 units Piperacillin Sod/Tazobactam Sod (Zosyn 2.25 Gm Iv Premix) 2.25 gm in 50 mls @ 100 mls/hr IVPB Q8H [facility] Last Admin: 10/31/17 17:00 Dose: 100 mls/hr Vancomycin/Sodium Chloride (Vancomycin 1 Gm/Ns 200 Ml) 1 gm in 200 mls @ 166.7 mls/hr IVPB Q24H [facility] Stop: 11/03/17 01:01 Last Admin: 10/31/17 01:18 Dose: 166.7 mls/hr Dextrose (Dextrose 5% In Water 1000 Ml) 1,000 mls @ 0 mls/hr IV .Q0M PRN; Protocol; Per Protocol PRN Reason: Hypoglycemia Protocol Insulin Aspart (Novolog) 20 unit SC ACTID [facility] Last Admin: 10/31/17 17:53 Dose: 20 unit Insulin Glargine (Lantus) 70 unit SC HS [facility] Last Admin: 10/30/17 22:22 Dose: 70 units Insulin Human Regular (Novolin R) 0 unit SC ACHS [facility] PRN Reason: Protocol Last Admin: 10/31/17 17:51 Dose: Not Given Ketorolac Tromethamine (Toradol) 10 mg IV Q6 PRN PRN Reason: Pain, moderate (4-7) Last Admin: 10/29/17 03:30 Dose: 10 mg Oxycodone/Acetaminophen (Percocet 5/325 Mg Tab) 1 tab PO Q6H PRN PRN Reason: SEVERE PAIN 8-10 Stop: 11/03/17 09:37 Last Admin: 10/31/17 15:45 Dose: 1 tab Pantoprazole Sodium (Protonix Ec Tab) 40 mg PO DAILY [facility] Last Admin: 10/31/17 12:11 Dose: 40 mg Rosuvastatin Calcium (Crestor) 10 mg PO [facility] Last Admin: 10/30/17 22:21 Dose: 10 mg Saccharomyces Boulardii (Florastor) 250 mg PO BID [facility] Last Admin: 10/31/17 17:52 Dose: 250 mg - Labs Labs: 10/31/17 07:06 10/31/17 07:06 PT 12.1 SECONDS (9.7-12.2) 10/30/17 13:48 INR 1.1 10/30/17 13:48 APTT 31 SECONDS (21-34) 10/30/17 13:48 Attending/Attestation - Attestation I have personally seen and examined this patient.: Yes I have fully participated in the care of the patient.: Yes I have reviewed all pertinent clinical information, including history, physical exam and plan: Yes Notes (Text): 10/31/17 19:36 Agree with resident note and plan of care
[2017-10-31 07:31] LABS: ALB/GLOB RATIO 1.1 (1.0-2.1); ALBUMIN 3.7 g/dL (3.5-5.0); ALT/SGPT 72 U/L (21-72); AST/SGOT 45 U/L (17-59); BLOOD UREA NITROGEN 17 mg/dL (9-20); CALCIUM 9.3 mg/dl (8.6-10.4); GFR AFRICAN-AMERICAN > 60; GFR NON-AFRICAN AMERICAN > 60; MAGNESIUM 1.7 mg/dL (1.6-2.3)
[2017-10-31 07:34] LABS: BASO # 0.1 K/uL (0.0-0.2); BASO % 0.7 % (0.0-2.0); EOS # 0.3 K/uL (0.0-0.7); EOS % 3.6 % (0.0-4.0); HEMOGLOBIN 13.4 g/dL (12.0-18.0); LYMPH # 2.4 K/uL (1.0-4.3); LYMPH % 25.8 % (20.0-40.0); MEAN CELL VOLUME 89.2 fL (80.0-94.0); MEAN CORPUSCULAR HEMOGLOBIN 31.3 pg (27.0-31.0); MEAN CORPUSCULAR HGB CONC 35.1 g/dL (33.0-37.0); MEAN PLATELET VOLUME 7.3 fL (7.2-11.7); MONO # 0.8 K/uL (0.0-0.8); NEUT # 5.7 K/uL (1.8-7.0); NEUT % 60.9 % (50.0-75.0); NRBC % 0.2 % (0.0-2.0); RBC 4.28 Mil/uL (4.40-5.90); RED CELL DISTRIBUTION WIDTH 12.6 % (11.5-14.5); WHITE BLOOD COUNT 9.4 K/uL (4.8-10.8)
[2017-10-31] MEDS ORDERED: Bupivacaine HCl 0.25% PF (10 ml) Inj ONE (08:29)
[2017-10-31] MEDS ORDERED: Lidocaine 1% Inj (20ml) ONE (08:30)
[2017-10-31] MEDS: (Novolin R) Insulin Human Regular 100 units/ml vial SC SCH ×4 (08:34→21:55)
[2017-10-31] MEDS: (Novolog) Insulin Aspart, Recombinant 100 u/ml 10 ml vial SC SCH ×3 (08:35→17:53)
[2017-10-31] MEDS ORDERED: Midazolam 2 MG/2 ML VIAL ONE (08:59)
[2017-10-31] MEDS ORDERED: Propofol 10 mg/ml Inj (20 ML) ONE (08:59)
[2017-10-31] MEDS ORDERED: Oxycodone/Acetaminophen 5/325 mg Tab PO PRN ×2 (09:36)
[2017-10-31] MEDS ORDERED: HYDROmorphone 0.5 mg/0.5 ml ISec IVP PRN (09:40)
--- NOTE | 2017-10-31 09:43 | PCM.SURG1 ---
Surgeon's Initial Post Op Note - Surgeon's Notes Surgeon: Dr. Silas Quinn, DPM Sales Account Representative: Guzman Salter, PGY1 Type of Anesthesia: IV Sedation, Local Anesthesia Administered By: Dr. Deleon Pre-Operative Diagnosis: Diabetic ulcer of distal right third digit with underlying osteomyelitis of right third digit distal phalanx Operative Findings: See dictation report. M- 3-0 nylon. I- Preoperative: 10 cc 1:1 1% lidocaine plain, 0.25% marcaine plain Post-Operative Diagnosis: Same Operation Performed: Right third digit partial amputation at middle phalanx with primary closure Specimen/Specimens Removed: Partially amputated distal right third digit, bone right third middle phalanx Estimated Blood Loss: EBL {In ML}: 10 Blood Products Given: N/A Drains Used: No Drains Post-Op Condition: Good Date of Surgery/Procedure: 10/31/17 Time of Surgery/Procedure: 09:43
[2017-10-31] MEDS: Collagenase 250 Units/gm Ointment(30 gm) TOP SCH (10:00)
[2017-10-31] MEDS: Pantoprazole 40 mg EC Tab PO SCH (12:11)
[2017-10-31] MEDS: Saccharomyces Boulardi 250 mg Cap PO SCH ×2 (12:12→17:52)
--- NOTE | 2017-10-31 16:52 | RAD ---
PROCEDURE: Right Foot Radiographs. HISTORY: s/p right third digit partial amputation COMPARISON: Comparison made with prior study 10/28/2017 FINDINGS: BONES: Normal. No fracture. Status post amputation middle and proximal and probably a portion of the distal aspect proximal 3rd digit stable postoperative changes 1st metatarsal. JOINTS: Normal. SOFT TISSUES: Normal. OTHER FINDINGS: None. IMPRESSION: Status post partial amputation 3rd digit as detailed above. No other change.
--- NOTE | 2017-10-31 19:17 | CP.PCM.PN ---
Subjective - Date & Time of Evaluation Date of Evaluation: 10/31/17 Time of Evaluation: 08:00 - Subjective Subjective: s/p amputaition / partial tolerated well Objective - Vital Signs/Intake and Output Vital Signs (last 24 hours): Temp Pulse Resp BP Pulse Ox 98.9 F 70 20 125/75 98 10/31/17 15:46 10/31/17 15:46 10/31/17 15:46 10/31/17 17:54 10/31/17 15:46 Intake and Output: 10/31/17 11/01/17 18:59 06:59 Intake Total 1150 Balance 1150 - Medications Medications: Current Medications Acetaminophen (Tylenol 325mg Tab) 650 mg PO Q6 PRN PRN Reason: Pain, Mild (1-3) Last Admin: 10/30/17 15:56 Dose: 650 mg Carvedilol (Coreg) 25 mg PO BID [facility] Last Admin: 10/31/17 17:54 Dose: 25 mg Collagenase (Santyl) 1 gm TOP DAILY [facility] Last Admin: 10/31/17 10:00 Dose: Not Given Dextrose (Dextrose 50% Inj) 0 ml IV STAT PRN; Protocol PRN Reason: Hypoglycemia Protocol Dextrose (Glutose 15) 0 gm PO ONCE PRN; Protocol PRN Reason: Hypoglycemia Protocol Enalapril Maleate (Vasotec) 40 mg PO DAILY [facility] Last Admin: 10/31/17 13:03 Dose: 40 mg Glucagon (Glucagen Diagnostic Kit) 0 mg IM STAT PRN; Protocol PRN Reason: Hypoglycemia Protocol Heparin Sodium (Porcine) (Heparin) 5,000 units SC Q12 [facility] Last Admin: 10/30/17 09:38 Dose: 5,000 units Piperacillin Sod/Tazobactam Sod (Zosyn 2.25 Gm Iv Premix) 2.25 gm in 50 mls @ 100 mls/hr IVPB Q8H [facility] Last Admin: 10/31/17 17:00 Dose: 100 mls/hr Vancomycin/Sodium Chloride (Vancomycin 1 Gm/Ns 200 Ml) 1 gm in 200 mls @ 166.7 mls/hr IVPB Q24H [facility] Stop: 11/03/17 01:01 Last Admin: 10/31/17 01:18 Dose: 166.7 mls/hr Dextrose (Dextrose 5% In Water 1000 Ml) 1,000 mls @ 0 mls/hr IV .Q0M PRN; Protocol; Per Protocol PRN Reason: Hypoglycemia Protocol Insulin Aspart (Novolog) 20 unit SC ACTID [facility] Last Admin: 10/31/17 17:53 Dose: 20 unit Insulin Glargine (Lantus) 70 unit SC HS [facility] Last Admin: 10/30/17 22:22 Dose: 70 units Insulin Human Regular (Novolin R) 0 unit SC ACHS [facility] PRN Reason: Protocol Last Admin: 10/31/17 17:51 Dose: Not Given Ketorolac Tromethamine (Toradol) 10 mg IV Q6 PRN PRN Reason: Pain, moderate (4-7) Last Admin: 10/29/17 03:30 Dose: 10 mg Oxycodone/Acetaminophen (Percocet 5/325 Mg Tab) 1 tab PO Q6H PRN PRN Reason: SEVERE PAIN 8-10 Stop: 11/03/17 09:37 Last Admin: 10/31/17 15:45 Dose: 1 tab Pantoprazole Sodium (Protonix Ec Tab) 40 mg PO DAILY [facility] Last Admin: 10/31/17 12:11 Dose: 40 mg Rosuvastatin Calcium (Crestor) 10 mg PO [facility] Last Admin: 10/30/17 22:21 Dose: 10 mg Saccharomyces Boulardii (Florastor) 250 mg PO BID [facility] Last Admin: 10/31/17 17:52 Dose: 250 mg - Labs Labs: 10/31/17 07:06 10/31/17 07:06 PT 12.1 SECONDS (9.7-12.2) 10/30/17 13:48 INR 1.1 10/30/17 13:48 APTT 31 SECONDS (21-34) 10/30/17 13:48 - Constitutional Appears: Non-toxic, Chronically Ill - Head Exam Head Exam: NORMOCEPHALIC - Eye Exam Eye Exam: PERRL - ENT Exam ENT Exam: Mucous Membranes Dry - Neck Exam Neck Exam: absent: Lymphadenopathy - Respiratory Exam Respiratory Exam: Decreased Breath Sounds - Cardiovascular Exam Cardiovascular Exam: REGULAR RHYTHM - GI/Abdominal Exam GI & Abdominal Exam: Distended, Soft Assessment and Plan (1) Diabetic toe ulcer Status: Acute (2) Chest pain Status: Acute (3) Diabetes mellitus Status: Acute (4) HTN (hypertension) Status: Acute
[2017-10-31] MEDS: (Lantus) Insulin Glargine, Recombinant SC SCH (22:30)
[2017-11-01] MEDS: Piperacill/Tazo 2.25gm in Dex 2.25 GM/50 ML BAG IVPB SCH ×2 (00:56→07:51)
[2017-11-01] MEDS: Vancomycin 1 gm/NS 200 ml 1 GM/200 ML BAG IVPB SCH (01:49)
--- NOTE | 2017-11-01 06:58 | CP.PCM.PN ---
Subjective - Date & Time of Evaluation Date of Evaluation: 11/01/17 Time of Evaluation: 06:58 - Subjective Subjective: Medicine progress note for Dr. Claudio's service Patient was seen and examined at bedside in no acute distress. Patient is s/p right 3rd digit partial amputation, POD1. Patient reports feeling well and has no complaints except pain in his toe. Patient denies chest pain, shortness of breath, nausea, vomiting, fevers, headaches, and leg pain/swelling. Objective - Vital Signs/Intake and Output Vital Signs (last 24 hours): Temp Pulse Resp BP Pulse Ox 98.5 F 72 20 129/68 97 10/31/17 23:40 10/31/17 23:40 10/31/17 23:40 10/31/17 23:40 10/31/17 23:40 Intake and Output: 10/31/17 11/01/17 18:59 06:59 Intake Total 1150 Balance 1150 - Medications Medications: Current Medications Acetaminophen (Tylenol 325mg Tab) 650 mg PO Q6 PRN PRN Reason: Pain, Mild (1-3) Last Admin: 11/01/17 00:41 Dose: 650 mg Carvedilol (Coreg) 25 mg PO BID [facility] Last Admin: 10/31/17 17:54 Dose: 25 mg Collagenase (Santyl) 1 gm TOP DAILY [facility] Last Admin: 10/31/17 10:00 Dose: Not Given Dextrose (Dextrose 50% Inj) 0 ml IV STAT PRN; Protocol PRN Reason: Hypoglycemia Protocol Dextrose (Glutose 15) 0 gm PO ONCE PRN; Protocol PRN Reason: Hypoglycemia Protocol Enalapril Maleate (Vasotec) 40 mg PO DAILY [facility] Last Admin: 10/31/17 13:03 Dose: 40 mg Glucagon (Glucagen Diagnostic Kit) 0 mg IM STAT PRN; Protocol PRN Reason: Hypoglycemia Protocol Heparin Sodium (Porcine) (Heparin) 5,000 units SC Q12 [facility] Last Admin: 10/30/17 09:38 Dose: 5,000 units Piperacillin Sod/Tazobactam Sod (Zosyn 2.25 Gm Iv Premix) 2.25 gm in 50 mls @ 100 mls/hr IVPB Q8H [facility] Last Admin: 11/01/17 00:56 Dose: 100 mls/hr Vancomycin/Sodium Chloride (Vancomycin 1 Gm/Ns 200 Ml) 1 gm in 200 mls @ 166.7 mls/hr IVPB Q24H [facility] Stop: 11/03/17 01:01 Last Admin: 11/01/17 01:49 Dose: 166.7 mls/hr Dextrose (Dextrose 5% In Water 1000 Ml) 1,000 mls @ 0 mls/hr IV .Q0M PRN; Protocol; Per Protocol PRN Reason: Hypoglycemia Protocol Insulin Aspart (Novolog) 20 unit SC ACTID [facility] Last Admin: 10/31/17 17:53 Dose: 20 unit Insulin Glargine (Lantus) 70 unit SC HS [facility] Last Admin: 10/31/17 22:30 Dose: Not Given Insulin Human Regular (Novolin R) 0 unit SC ACHS [facility] PRN Reason: Protocol Last Admin: 10/31/17 21:55 Dose: Not Given Ketorolac Tromethamine (Toradol) 10 mg IV Q6 PRN PRN Reason: Pain, moderate (4-7) Last Admin: 10/29/17 03:30 Dose: 10 mg Oxycodone/Acetaminophen (Percocet 5/325 Mg Tab) 1 tab PO Q6H PRN PRN Reason: SEVERE PAIN 8-10 Stop: 11/03/17 09:37 Last Admin: 10/31/17 15:45 Dose: 1 tab Pantoprazole Sodium (Protonix Ec Tab) 40 mg PO DAILY [facility] Last Admin: 10/31/17 12:11 Dose: 40 mg Rosuvastatin Calcium (Crestor) 10 mg PO [facility] Last Admin: 10/31/17 22:30 Dose: 10 mg Saccharomyces Boulardii (Florastor) 250 mg PO BID [facility] Last Admin: 10/31/17 17:52 Dose: 250 mg - Labs Labs: 10/31/17 07:06 10/31/17 07:06 PT 12.1 SECONDS (9.7-12.2) 10/30/17 13:48 INR 1.1 10/30/17 13:48 APTT 31 SECONDS (21-34) 10/30/17 13:48 - Additional Findings Additional findings: - Constitutional Appears: No Acute Distress - Head Exam Head Exam: ATRAUMATIC, NORMAL INSPECTION - Eye Exam Eye Exam: EOMI, Normal appearance - ENT Exam ENT Exam: Mucous Membranes Moist - Respiratory Exam Respiratory Exam: Clear to Ausculation Bilateral, NORMAL BREATHING PATTERN. absent: Rales, Rhonchi, Wheezes, Respiratory Distress - Cardiovascular Exam Cardiovascular Exam: REGULAR RHYTHM, +S1, +S2 - GI/Abdominal Exam GI & Abdominal Exam: Soft, Normal Bowel Sounds. absent: Distended, Tenderness - Extremities Exam Extremities Exam: Tenderness (right 3rd toe; s/p partial amputation- dressing clean, dry, intact); sensation intact; able to move toes. - Neurological Exam Neurological Exam: Alert, Awake, Oriented x3 - Psychiatric Exam Psychiatric exam: Normal Affect, Normal Mood - Skin Skin Exam: Dry, Intact, Warm Assessment and Plan - Assessment and Plan (Free Text) Plan: 1. Right foot ulcer with evidence of Osteomyelitis * Senior Application Security Consultant, Dr. Quinn, consulted help appreciated * Vancomycin 1 gm IV daily * vanco trough 9.7 on 11/01 * Zosyn 2.25 gm Q8H * Wound cultures: gram negative jorge luis, gram positive cocci * Blood cultures- negative * MRI on 10/29/17: Soft tissue ulceration seen at the level of the 3rd distal phalanx. At that level, there is a 4 millimeter low-attenuation foci with some peripheral increased signal measuring 4 millimeters seen at the medial volar aspect at the level of the 3rd digit which may represent a small developing phlegmon collection. Adjacent minimal reactive edema seen within the 3rd distal phalanx with only minimal patchy decreased T1 signal. These findings may represent a mild early acute and or mild developing acute osteomyelitis. * Severe hallux valgus deformity. 6 millimeter foci of decreased T1 signal and increased STIR signal seen at the 1st metatarsal head which may represent developing osteochondral change versus developing osteonecrosis. * ID consult, Dr. Cortes, help appreciated * Podiatry, Dr. Quinn, help appreciated * Continue management as per podiatry. * s/p right 3rd toe partial amputation at proximal phalanx with primary closure (completed on 11/01/17) * As per podiatry- post-surgery care: patient must be partial weight bearing to the heel; reverse wedge shoe should be worn if weight bearing; keep dressing clean, dry and intact until follow up with Dr. uQinn as outpatient. May take Tylenol as needed for the pain. 2. History of Hypertension * Continue Home med Coreg 25 mg PO BID * Continue Home med Enalapril 40 mg PO daily 3. History of Diabetes * Hold home Metformin 1000 mg PO BID for now * Continue Home med Lantus 70 units HS * Continue Insulin Aspart 20 units ACTID (Home med Humalog 20 units SC ACTID not on formulary) * HgbA1c 10.1 * Regular ISS * Accuchecks 4. Prophylactic Measure * Florastor 250 mg PO BID * Protonix 40 mg PO daily * Heparin 5000 units SC Q12 * Diabetic Diet Case Discussed with Dr. Claudio
--- NOTE | 2017-11-01 07:17 | OP ---
PROCEDURE DATE: 10/31/2017 SURGEON: Silas Quinn DPM. SHIRT LINE OPERATOR: Guzman Salter DPM, PGY-1. ANESTHESIOLOGIST: Dr. Deleon. TYPE OF ANESTHESIA: IV sedation with local. PREOPERATIVE DIAGNOSES: Diabetic ulcer of distal right third digit with underlying osteomyelitis of right third digit distal phalanx. POSTOPERATIVE DIAGNOSES: Diabetic ulcer of distal right third digit with underlying osteomyelitis of right third digit distal phalanx. NAME OF PROCEDURE: Right third digit partial amputation at proximal phalanx with primary closure. INDICATION: The patient is a 52-year-old male with the above diagnoses. The patient has exhausted all conservative treatment at this time and now requires surgical intervention. Patient signed consent after careful explanation of risks, benefits, complications and alternatives for surgical procedure. No guarantees were given or implied. N.p.o. status was confirmed prior to taking patient to the OR. PREPARATION: The patient was brought into the operating room and placed on the operating room table in a supine position. Timeout was performed for identification of the correct patient and procedure. After induction of IV sedation, the patient received a total of 10 mL of a 1:1 mixture of 0.25% Marcaine plain and 1% lidocaine plain in a local block fashion to the base of the right third digit. The right lower extremity was then prepped and draped in the normal sterile manner and the procedure began. No tourniquet was used during the procedure. PROCEDURE #1: Attention was then turned to the right third digit, which was noted to have an ulceration on the distal medial aspect of the digit with purulent drainage and a necrotic/erythematous sonla-wound border. Utilizing a #15 blade, a circumferential incision was made around the digit at the level of the proximal interphalangeal joint. A towel clamp was then used to maneuver the digit while a #15 blade was used to disarticulate the digit at the proximal interphalangeal joint. The partial digit that was amputated was sent to pathology for examination. The surgical site was then investigated and all necrotic and nonviable soft tissue was excised using pickups and fresh #15 blade. The proximal phalanx was then exposed and using a microsurgical saw on power, the distal cartilage of the proximal phalanx was excised from the surgical field. Any remaining nonviable soft tissue that could be identified was excised from the field using fresh #15 blade and the surgical site was closed with 3-0 nylon suturing in a simple knot fashion. The surgical site was then dressed with Xeroform, 4x4 gauze, Kerlix, Tristan and light Coban. POSTOPERATIVE CONDITION: The patient tolerated the anesthesia and procedure well and was escorted to the recovery room with vital signs stable and neurovascular status intact to the right lower extremity. Patient is to remain nonweightbearing to the right lower extremity. Podiatry will continue to follow the patient while he remains inhouse and following discharge from the hospital, the patient will follow up with Dr. Quinn at his office. Guzman Salter DPM Silas Quinn DPM MTDByron
[2017-11-01 07:35] LABS: BASO # 0.1 K/uL (0.0-0.2); BASO % 0.6 % (0.0-2.0); EOS # 0.4 K/uL (0.0-0.7); EOS % 3.5 % (0.0-4.0); HEMOGLOBIN 13.4 g/dL (12.0-18.0); LYMPH # 2.9 K/uL (1.0-4.3); LYMPH % 27.7 % (20.0-40.0); MEAN CELL VOLUME 88.7 fL (80.0-94.0); MEAN CORPUSCULAR HEMOGLOBIN 31.9 pg (27.0-31.0); MEAN PLATELET VOLUME 7.2 fL (7.2-11.7); MONO % 9.2 % (0.0-10.0); NEUT # 6.2 K/uL (1.8-7.0); RBC 4.19 Mil/uL (4.40-5.90); RED CELL DISTRIBUTION WIDTH 12.9 % (11.5-14.5); WHITE BLOOD COUNT 10.5 K/uL (4.8-10.8)
[2017-11-01] MEDS: (Novolin R) Insulin Human Regular 100 units/ml vial SC SCH ×2 (08:05→12:20)
[2017-11-01 08:08] LABS: ALB/GLOB RATIO 1.2 (1.0-2.1); ALBUMIN 3.6 g/dL (3.5-5.0); ALT/SGPT 89 U/L (21-72); AST/SGOT 61 U/L (17-59); BLOOD UREA NITROGEN 15 mg/dL (9-20); CALCIUM 9.1 mg/dl (8.6-10.4); GFR AFRICAN-AMERICAN > 60; GFR NON-AFRICAN AMERICAN > 60; MAGNESIUM 1.6 mg/dL (1.6-2.3)
[2017-11-01] MEDS: (Novolog) Insulin Aspart, Recombinant 100 u/ml 10 ml vial SC SCH ×2 (08:35→12:30)
[2017-11-01] MEDS: Saccharomyces Boulardi 250 mg Cap PO SCH (10:10)
[2017-11-01] MEDS: Pantoprazole 40 mg EC Tab PO SCH (10:11)
[2017-11-01] MEDS: Collagenase 250 Units/gm Ointment(30 gm) TOP SCH (10:12)
--- NOTE | 2017-11-01 14:19 | CP.PCM.PN ---
Subjective - Date & Time of Evaluation Date of Evaluation: 11/01/17 Time of Evaluation: 14:16 - Subjective Subjective: 52 year old male seen at bedside with his 1 day s/p right third digit amputation secondary to osteomyelitis. Patient is AAO x 3 and NAD at time of visit. Patient denies any acute overnight events. Denies any new onset pain and states that overall his pain is well controlled. Denies any further pedal complaints at this time. Denies N/V/F/C/CP/SOB/D/posterior calf pain when squeezed Objective - Vital Signs/Intake and Output Vital Signs (last 24 hours): Temp Pulse Resp BP Pulse Ox 97.7 F 70 20 109/61 97 11/01/17 07:59 11/01/17 07:59 11/01/17 07:59 11/01/17 10:11 10/31/17 23:40 - Medications Medications: Current Medications Acetaminophen (Tylenol 325mg Tab) 650 mg PO Q6 PRN PRN Reason: Pain, Mild (1-3) Last Admin: 11/01/17 00:41 Dose: 650 mg Carvedilol (Coreg) 25 mg PO BID [facility] Last Admin: 11/01/17 10:11 Dose: 25 mg Collagenase (Santyl) 1 gm TOP DAILY [facility] Last Admin: 11/01/17 10:12 Dose: 1 applic Dextrose (Dextrose 50% Inj) 0 ml IV STAT PRN; Protocol PRN Reason: Hypoglycemia Protocol Dextrose (Glutose 15) 0 gm PO ONCE PRN; Protocol PRN Reason: Hypoglycemia Protocol Enalapril Maleate (Vasotec) 40 mg PO DAILY [facility] Last Admin: 11/01/17 10:10 Dose: 40 mg Glucagon (Glucagen Diagnostic Kit) 0 mg IM STAT PRN; Protocol PRN Reason: Hypoglycemia Protocol Heparin Sodium (Porcine) (Heparin) 5,000 units SC Q12 [facility] Last Admin: 10/30/17 09:38 Dose: 5,000 units Piperacillin Sod/Tazobactam Sod (Zosyn 2.25 Gm Iv Premix) 2.25 gm in 50 mls @ 100 mls/hr IVPB Q8H [facility] Last Admin: 11/01/17 07:51 Dose: 100 mls/hr Vancomycin/Sodium Chloride (Vancomycin 1 Gm/Ns 200 Ml) 1 gm in 200 mls @ 166.7 mls/hr IVPB Q24H [facility] Stop: 11/03/17 01:01 Last Admin: 11/01/17 01:49 Dose: 166.7 mls/hr Dextrose (Dextrose 5% In Water 1000 Ml) 1,000 mls @ 0 mls/hr IV .Q0M PRN; Protocol; Per Protocol PRN Reason: Hypoglycemia Protocol Insulin Aspart (Novolog) 20 unit SC ACTID [facility] Last Admin: 11/01/17 12:30 Dose: 20 unit Insulin Glargine (Lantus) 70 unit SC HS [facility] Last Admin: 10/31/17 22:30 Dose: Not Given Insulin Human Regular (Novolin R) 0 unit SC ACHS [facility] PRN Reason: Protocol Last Admin: 11/01/17 12:20 Dose: 6 unit Ketorolac Tromethamine (Toradol) 10 mg IV Q6 PRN PRN Reason: Pain, moderate (4-7) Last Admin: 10/29/17 03:30 Dose: 10 mg Oxycodone/Acetaminophen (Percocet 5/325 Mg Tab) 1 tab PO Q6H PRN PRN Reason: SEVERE PAIN 8-10 Stop: 11/03/17 09:37 Last Admin: 10/31/17 15:45 Dose: 1 tab Pantoprazole Sodium (Protonix Ec Tab) 40 mg PO DAILY [facility] Last Admin: 11/01/17 10:11 Dose: 40 mg Rosuvastatin Calcium (Crestor) [address] [facility] Last Admin: 10/31/17 22:30 Dose: 10 mg Saccharomyces Boulardii (Florastor) 250 mg PO BID [facility] Last Admin: 11/01/17 10:10 Dose: 250 mg - Labs Labs: 11/01/17 06:56 11/01/17 06:56 PT 12.1 SECONDS (9.7-12.2) 10/30/17 13:48 INR 1.1 10/30/17 13:48 APTT 31 SECONDS (21-34) 10/30/17 13:48 - Constitutional Appears: Well, Non-toxic, No Acute Distress - Extremities Exam Additional comments: RLE focused exam: VASC: DP 2/4 and PT pulses are palpable (1/4 both), cap refill < 3 sec to all digits, slight edema is noted to right forefoot DERM: Surgical site is well coapted with no clinical signs of infection noted. No periwound erythema, no malodor, no purulent drainage noted. No other open lesions or wounds noted b/l NEURO: epicritic and protective pedal sensation is intact ORTHO: Minimal pain on palpation to partial amputation site of third digit. No other gross deformities noted b/l - Neurological Exam Neurological Exam: Alert, Awake, Oriented x3 - Psychiatric Exam Psychiatric exam: Normal Affect, Normal Mood Assessment and Plan - Assessment and Plan (Free Text) Assessment: 52 year old male with PMHx of DM seen 1 day s/p partial amputation right third digit secondary to OM Plan: Patient seen and evaluated at bedside Plan discussed with attending Dr. Quinn Afebrile, absent leukocytosis Continue abx per ID Patient is stable from podiatric standpoint for discharge home Patient to remain partial weight bearing to the heel in reverse wedge shoe Patient to keep dressing clean/dry/intact until follow up appointment at Dr. Quinn's office Patient to take Tylenol for pain as needed Patient to follow up with Dr. Quinn in his office next week
[2017-11-01 16:33] VITALS: BP 114/71; PULSE 71; RESP 18; TEMP 98; O2SAT 98
--- NOTE | 2017-11-01 20:14 | CP.PCM.DIS ---
Provider - Provider Date of Admission: 10/28/17 22:58 Attending physician: Joseph Claudio Jr, MD Consults: ID: Dr. Cortes Podiatry: Dr. Quinn Time Spent in preparation of Discharge (in minutes): 45 Hospital Course - Lab Results Lab Results: Micro Results 10/28/17 23:00 Blood-Venous Blood Culture - Preliminary NO GROWTH AFTER 3 DAYS 10/28/17 22:30 Blood-Venous Blood Culture - Preliminary NO GROWTH AFTER 3 DAYS 10/29/17 00:55 Toe Gram Stain - Final 10/29/17 00:55 Toe Wound Culture - Final Raoultella Ornithinolytica Streptococcus Uberis Most Recent Lab Values WBC 10.5 K/uL (4.8-10.8) 11/01/17 06:56 RBC 4.19 Mil/uL (4.40-5.90) L 11/01/17 06:56 Hgb 13.4 g/dL (12.0-18.0) 11/01/17 06:56 Hct 37.1 % (35.0-51.0) 11/01/17 06:56 MCV 88.7 fL (80.0-94.0) 11/01/17 06:56 MCH 31.9 pg (27.0-31.0) H 11/01/17 06:56 MCHC 36.0 g/dL (33.0-37.0) 11/01/17 06:56 RDW 12.9 % (11.5-14.5) 11/01/17 06:56 Plt Count 384 K/uL (130-400) 11/01/17 06:56 MPV 7.2 fL (7.2-11.7) 11/01/17 06:56 Neut % (Auto) 59.0 % (50.0-75.0) 11/01/17 06:56 Lymph % (Auto) 27.7 % (20.0-40.0) 11/01/17 06:56 [place] % (Auto) 9.2 % (0.0-10.0) 11/01/17 06:56 Eos % (Auto) 3.5 % (0.0-4.0) 11/01/17 06:56 Baso % (Auto) 0.6 % (0.0-2.0) 11/01/17 06:56 Neut # 6.2 K/uL (1.8-7.0) 11/01/17 06:56 Lymph # 2.9 K/uL (1.0-4.3) 11/01/17 06:56 [place] # 1.0 K/uL (0.0-0.8) H 11/01/17 06:56 Eos # 0.4 K/uL (0.0-0.7) 11/01/17 06:56 Baso # 0.1 K/uL (0.0-0.2) 11/01/17 06:56 ESR 41 mm/hr (0-15) H 10/30/17 07:36 PT 12.1 SECONDS (9.7-12.2) 10/30/17 13:48 INR 1.1 10/30/17 13:48 APTT 31 SECONDS (21-34) 10/30/17 13:48 Sodium 132 mmol/L (132-148) 11/01/17 06:56 Potassium 4.2 mmol/L (3.6-5.2) 11/01/17 06:56 Chloride 100 mmol/L (98-107) 11/01/17 06:56 Carbon Dioxide 27 mmol/L (22-30) 11/01/17 06:56 Anion Gap 9 (10-20) L 11/01/17 06:56 BUN 15 mg/dL (9-20) 11/01/17 06:56 Creatinine 0.9 mg/dL (0.8-1.5) 11/01/17 06:56 Est GFR ( Amer) > 60 11/01/17 06:56 Est GFR (Non-Af Amer) > 60 11/01/17 06:56 POC Glucose (mg/dL) 315 mg/dL (65-110) H 11/01/17 12:08 Random Glucose 209 mg/dL (75-110) H 11/01/17 06:56 Hemoglobin A1c 10.1 % (4.2-6.5) H 10/28/17 22:38 Calcium 9.1 mg/dl (8.6-10.4) 11/01/17 06:56 Phosphorus 3.9 mg/dL (2.5-4.5) 11/01/17 06:56 Magnesium 1.6 mg/dL (1.6-2.3) 11/01/17 06:56 Total Bilirubin 0.4 mg/dL (0.2-1.3) 11/01/17 06:56 AST 61 U/L (17-59) H D 11/01/17 06:56 ALT 89 U/L (21-72) H D 11/01/17 06:56 Alkaline Phosphatase 86 U/L (38-126) 11/01/17 06:56 C-React Prot High Sens > 15.00 mg/L (1.00-3.00) H 10/30/17 07:36 Total Protein 6.7 g/dL (6.3-8.3) 11/01/17 06:56 Albumin 3.6 g/dL (3.5-5.0) 11/01/17 06:56 Globulin 3.0 gm/dL (2.2-3.9) 11/01/17 06:56 Albumin/Globulin Ratio 1.2 (1.0-2.1) 11/01/17 06:56 Vancomycin Trough 9.7 ug/mL (5.0-10.0) 11/01/17 06:56 Serum Ketones Negative (NEGATIVE) 10/28/17 22:38 - Hospital Course Hospital Course: CC: right toe pain HPI: 52M with PMHx of COPD, HTN, Type 2 DM, HLD presents to the ED with right toe pain. Patient reports he noticed the 3rd toe of his right foot was black and oozing with drainage. 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 He follows up with podiatry every 3-4 months, and this was not seen on prior visit. Patient describes the pain as heavy and sharp and rates it 8/10 and reports radiation of the pain to the caudal surface of his right knee. He reports taking Motrin at home for the pain, with little relief. He is able to bear weight on the foot, but with some level of discomfort. Denied fever, chills, headache, chest pain, SOB, abdominal pain, n/v/d/c, or urinary symptoms. PMH: COPD, HTN, Type 2 DM, HLD PSHx: Right foot fracture (2012), Left Foot Fracture (2013), Tonsillectomy FMHx: Mother - Stroke, renal failure, heart failure, breast cancer, currently 80 and alive. Father - stroke, renal failure, heart failure, . Social Hx: Reports smoking 5 cigarettes a day for the past year, reports quitting smoking from 2004 to 2016. Denies alcohol and illegal drug use. Patient lives with is mother in [place] and works in construction. Meds: Metformin 1000 mg PO BID, Lantus 60-70 units QHS, Humalog 20 units TID, Simvastatin, Enalapril, Carvedilol 25 mg PO BID Allergies: NKDA PMD: Dr. Roger Endo: Dr Maurice Grease Cup Filler: Dr. Taylor - Patient reports regular follow up every 3 months. Cardio: Dr. Goldberg Hospital course: Patient was admitted on 10/28/17 for right toe cellulitis/ osteomyelitis. In the ED, labs were drawn, imaging done, and medications ( Vancomycin, Zosyn, IV fluids) were given. Podiatry, Dr. Quinn, was consulted. MRI of the lower extremity showed soft tissue ulceration seen at the level of the 3rd distal phalanx; at that level, there is a 4 millimeter low-attenuation foci with some peripheral increased signal measuring 4 millimeters seen at the medial volar aspect at the level of the 3rd digit which may represent a small developing phlegmon collection. Adjacent minimal reactive edema seen within the 3rd distal phalanx with only minimal patchy decreased T1 signal; These findings may represent a mild early acute and or mild developing acute osteomyelitis; Severe hallux valgus deformity. 6 millimeter foci of decreased T1 signal and increased STIR signal seen at the 1st metatarsal head which may represent developing osteochondral change versus developing osteonecrosis. Infectious disease, Dr Cortes, was consulted. Patient scheduled for the OR for the third toe ulceration. Patient had right third toe partial amputation at proximal phalanx with primary closure on 11/01/17. Wound culture showed gram negative jorge luis , gram positive cocci (Raoultella ornithiniolytica, streptococcus uberis). Blood cultures were negative. Patient's home medications for hypertension and diabetes were continued (except for Metformin, which was held). Hypertension and diabetes were monitored and managed throughout hospital course. Patient was seen and examined at bedside in no acute distress. Patient reports feeling well and has minimal pain. Patient is stable for discharge to home as per Dr. Quinn and Dr. Claudio. Patient must follow up with podiatry within one week of discharge for continued manage post-surgery. patient must follow up with PMD within one week of discharge. This is a brief history of the hospital course. Please see EMR for more details. Discharge Exam - Head Exam Head Exam: ATRAUMATIC, NORMOCEPHALIC - Eye Exam Eye Exam: EOMI, Normal appearance - ENT Exam ENT Exam: Mucous Membranes Moist - Respiratory Exam Respiratory Exam: Clear to PA & Lateral, NORMAL BREATHING PATTERN, UNREMARKABLE. absent: Rales, Rhonchi, Wheezes, Respiratory Distress - Cardiovascular Exam Cardiovascular Exam: REGULAR RHYTHM, +S1, +S2 - GI/Abdominal Exam GI & Abdominal Exam: Normal Bowel Sounds, Soft, Unremarkable. absent: Distended , Tenderness - Extremities Exam Additional comments: Tenderness (right 3rd toe; s/p partial amputation- dressing clean, dry, intact) ; sensation intact; able to move toes. - Neurological Exam Neurological exam: Alert, Oriented x3 - Psychiatric Exam Psychiatric exam: Normal Affect, Normal Mood - Skin Skin Exam: Dry, Intact, Normal Color Discharge Plan - Discharge Medications Prescriptions: Ciprofloxacin [Cipro] 500 mg PO BID 10 Days tab - Follow Up Plan Condition: GOOD Disposition: HOME/ ROUTINE Instructions: Ciprofloxacin (By mouth), Cellulitis (DC), Heart Healthy Diet (DC ), Diabetic Foot Care (DC), Basic Carbohydrate Counting (DC), Meal Planning with the Plate Method (DC), Meal Planning with Diabetes Exchanges (DC), Toe Amputation (DC) Additional Instructions: Patient is stable for discharge to home as per Dr. Claudio. Patient should continue home medications. Patient must start new antibiotic as prescribed: Cipro 500mg PO BID for 10 days - take one tablet twice a day for 10 days. Patient must follow up with Dr. Quinn within one week of discharge for continued care and for pathology results. As per podiatry- post-surgery care: patient must be partial weight bearing to the heel; reverse wedge shoe should be worn if weight bearing; keep dressing clean, dry and intact until follow up with Dr. Quinn as outpatient. Patient must cover with cast cover if showering- cannot get wet. May take Tylenol as needed for the pain. Patient must follow up with PMD within one week of discharge. Patient needs home visiting nurse for wound care. If symptoms reoccur or worsen, patient should return to the ED. Referrals: Joseph Claudio Jr., MD [Medical Doctor] - Silas Quinn DPM [Staff Provider] -
== END 2017-11-01 16:56 | disposition home or self-care (01) ==
LOC: C.ER 19:04 → C.9E 22:58 → C.6T 10-29 13:13
PROVIDERS: ADMIT Internal Medicine; ATTEND Internal Medicine
PROC: 0Y6T0Z1 Detachment at Right 3rd Toe, High, Open Approach (ICD-10-PCS; principal; 2017-10-31 08:30)
DX: E11.69 Type 2 diabetes mellitus with other specified complication (principal); M86.171 Other acute osteomyelitis, right ankle and foot; I96 Gangrene, not elsewhere classified; J44.9 Chronic obstructive pulmonary disease, unspecified; Z79.4 Long term (current) use of insulin; E78.5 Hyperlipidemia, unspecified; F17.210 Nicotine dependence, cigarettes, uncomplicated; E11.52 Type 2 diabetes mellitus with diabetic peripheral angiopathy with gangrene; I10 Essential (primary) hypertension; L03.031 Cellulitis of right toe; Z68.23 Body mass index [BMI] 23.0-23.9, adult